=== PATIENT | female | born 1980 | race African-American/Black ===

== ENCOUNTER 2019-07-24 12:42 | Emergency (ER) | payer MEDICAID, SELFPAY ==
[2019-07-24 12:54] VITALS: BP 149/109; PULSE 104; RESP 20; TEMP 38.3; O2SAT 99
--- NOTE | 2019-07-24 13:02 | ED.GENADULT ---
HPI - General Adult General Chief complaint: Upper Respiratory Infection Stated complaint: Asthma Time Seen by Provider: 07/24/19 13:03 Source: patient and RN notes reviewed Mode of arrival: ambulatory Limitations: no limitations History of Present Illness HPI narrative: This is a 39 years old female presents to the office for an evaluation of flu like symptoms for three days. Symptoms include body ache, chill, cold and hot, scratchy throat, and cough. Associated with chest tightness when she coughs. Admits to history of asthma. She does not smoke. She just recently moved here from [facility]. Related Data Allergies Allergy/AdvReac Type Severity Reaction Status Date / Time acetaminophen [From Lortab] AdvReac Unknown Verified 07/10/19 12:55 hydrocodone [From Lortab] AdvReac Unknown Verified 07/10/19 12:55 Review of Systems Review of Systems: Narrative: CONSTITUTIONAL: Reports fever, chills, hot/sweating ENT: Report runny nose/congestion CARDIOVASCULAR: Denies chest pain RESPIRATORY: Reports dyspnea with cough GASTROINTESTINAL: Denies abdominal pain, nausea, diarrhea. Reports vomiting once at the beginning of her symptoms GENITOURINARY: Denies urinary symptoms or discharge SKIN: Denies rash MUSCULOSKELETAL: Denies acute back pain NEUROLOGIC: Denies lightheaded PMFSH Social History Social History (Updated 07/24/19 @ 13:15 by HALI Mcclellan) Smoking status: Never smoker Comments At time of signature, I agree with nursing past medical, surgical, social and family history. There is no relevant family history pertinent to the presenting complaint. Exam Narrative: Exam Narrative: GENERAL: This is a well-nourished, well-developed patient, appears ill, in no apparent distress. EYES: Sclera clear/white. Vision is grossly intact. EARS: External ears normal, auditory canals clear and without drainage, TMs normal without perforation. Hearing grossly intact. NOSE: External nose normal with no obvious nasal discharge, nares without redness, no rhinorrhea. THROAT: Mucous membranes moist, posterior pharynx clear. NECK: Neck supple, non-tender without lymphadenopathy, masses or thyromegaly. CARDIOVASCULAR: Regular rate and rhythm without murmurs, gallops, or rubs. RESPIRATORY: Diminished throughout, however patient did not attempt to take a deep breath. Breath sounds equal bilaterally. No wheezes, rales, or rhonchi. GASTROINTESTINAL: Abdomen soft, non-tender, nondistended. Bowel sounds are active. No hepato-splenomegaly, or palpable masses. No guarding. SKIN: warm, intact with no suspicious lesions or rash, good texture and turgor. NEURO: awake, alert, and oriented to person, place and time. There were no obvious focal neurologic abnormalities. Steady gait [place] Coma Scale Eye Opening: Spontaneous 4 [place] Coma Scale Motor: Obeys Commands 6 [place] Coma Scale Verbal: Oriented 5 Course Reevaluation(s) Reevaluation #1: Patient reports feeling about the same post nebulizer treatment. Patient asking for prednisone, I told the patient is not indicated at this time especially when she tested positive for influenza. She verbalizes understanding. Vital Signs Vital signs: Vital Signs Temperature 101.0 F H 07/24/19 12:54 Pulse Rate 104 H 07/24/19 12:54 Respiratory Rate 07/24/19 12:54 Blood Pressure 149/109 H 07/24/19 12:54 Pulse Oximetry 99 07/24/19 12:54 Temperature 101 F H 07/24/19 13:18 Pulse Rate 104 H 07/24/19 12:54 Respiratory Rate 07/24/19 12:54 Blood Pressure 149/109 H 07/24/19 12:54 Pulse Oximetry 99 07/24/19 12:54 Medical Decision Making MDM Narrative Medical decision making narrative: Discharge instructions reviewed with patient, as well as provided in writing per nursing staff. The instructions also include specific and strict return/GO TO THE ER as well as f/u information. All questions have been answered, and the patient deny any further questions with discharge and
[2019-07-24] MEDS: ALBUTEROL SULFATE NEB 2.5 MG/3 ML INH INHALATION (13:17)
[2019-07-24 13:18] VITALS: PULSE 104; RESP 22; TEMP 38.3; O2SAT 98
[2019-07-24] MEDS: IBUPROFEN 400 MG TABLET PO (13:18)
[2019-07-24] MEDS: IPRATROPIUM BR 0.02% INH SOLN 0.5 MG/2.5 ML VIAL INHALATION (13:18)
[2019-07-24 13:45] VITALS: RESP 22; O2SAT 98
[2019-07-24 13:52] VITALS: TEMP 38.4
--- NOTE | 2019-07-26 11:12 | PC.NURSE ---
stated was seen here 07-24-2019 and dx with flu a. requested work note and vorb per rae ramos np.
== END 2019-07-24 13:54 | disposition home or self-care (01) ==
PROVIDERS: Emergency Provider Nurse Practitioner
DX: J10.1 Influenza due to other identified influenza virus with other respiratory manifestations (principal); R03.0 Elevated blood-pressure reading, without diagnosis of hypertension; J45.909 Unspecified asthma, uncomplicated
CPT/HCPCS: 87804; 94640; 99213; A9270; G0463

== ENCOUNTER 2019-07-31 09:23 | Emergency (ER) | payer MEDICAID, SELFPAY ==
[2019-07-31 09:33] VITALS: BP 141/96; PULSE 72; RESP 16; TEMP 36.9; O2SAT 98
--- NOTE | 2019-07-31 09:56 | ED.GENADULT ---
HPI - General Adult General Chief complaint: Upper Respiratory Infection Stated complaint: Lump/Neck Time Seen by Provider: 07/31/19 09:57 Source: patient and RN notes reviewed Mode of arrival: ambulatory Limitations: no limitations History of Present Illness HPI narrative: 39-year-old female presents with concern for swollen glands. Reports she was treated 1 week ago for influenza with Tamiflu. Reports she took 4 days of the 5-day course of Tamiflu, she stopped taking the Tamiflu when she noticed a lump on the right side of her neck that was painful to swallow. MD complaint: Upper respiratory Related Data Allergies Allergy/AdvReac Type Severity Reaction Status Date / Time acetaminophen [From Lortab] AdvReac Unknown Verified 07/10/19 12:55 hydrocodone [From Lortab] AdvReac Unknown Verified 07/10/19 12:55 Review of Systems Review of Systems: Narrative: CONSTITUTIONAL: Denies malaise, chills, sweats, or fever. EYES: Denies visual changes, redness, or discharge. ENT: Reports rhinorrhea, congestion, sore throat. Denies sinus pain, otalgia. Reports a lump in her right neck CARDIOVASCULAR: Denies chest pain, palpitations, or edema. RESPIRATORY: Reports cough, wheezing. Denies dyspnea. MUSCULOSKELETAL: Denies myalgia. NEUROLOGIC: Denies headache. All systems reviewed & are unremarkable except as noted in HPI and below PMFSH Social History Social History (Updated 07/24/19 @ 13:15 by HALI Mcclellan) Smoking status: Never smoker Comments At time of signature, agree with nursing past medical, surgical, social and family history. There is no relevant family history pertinent to the presenting complaint Exam Narrative: Exam Narrative: GENERAL: Well-appearing, well-nourished, and in no acute distress. HEAD: Normocephalic EYES: PERRLA, conjunctivae clear ENT: Nares clear, turbinates edematous and erythematous, purulent discharge. Mucous membranes moist. TM pearly verma with dull light reflex bilaterally; no tragal tenderness. Oropharynx not erythematous without lesions. Tonsils enlarged and without exudate, no drooling, no hoarseness, no trismus. NECK: Supple. No lymphadenopathy noted CHEST: Scattered wheeze and rhonchi, breath sounds equal. No rales, or stridor. No respiratory distress, speaks in full sentences. HEART: Regular rate and rhythm. SKIN: Warm, dry, no rash. NEURO: Alert and oriented x3. PSYCH: Normal mood and affect Course Course Emergency Course: Patient is aware of diagnosis, understands and agrees to treatment plan. Anticipatory guidance given. Patient agrees to follow-up as directed and is aware of reasons to seek care at the emergency department. Portions of this record may have been created with voice recognition software Vital Signs Vital signs: Vital Signs Temperature 98.4 F 07/31/19 09:33 Pulse Rate 72 07/31/19 09:33 Respiratory Rate 16 07/31/19 09:33 Blood Pressure 141/96 H 07/31/19 09:33 Pulse Oximetry 98 07/31/19 09:33 Temperature 98.4 F 07/31/19 09:33 Pulse Rate 72 07/31/19 09:33 Respiratory Rate 16 07/31/19 09:33 Blood Pressure 141/96 H 07/31/19 09:33 Pulse Oximetry 98 07/31/19 09:33 Reviewed. Patient has been instructed to follow up with her primary care provider within the next week regarding her elevated blood pressure today. Medical Decision Making Vital Signs Vital Signs: Vital Signs Temperature 98.4 F 07/31/19 09:33 Pulse Rate 72 07/31/19 09:33 Respiratory Rate 16 07/31/19 09:33 Blood Pressure 141/96 H 07/31/19 09:33 Pulse Oximetry 98 07/31/19 09:33 Temperature 98.4 F 07/31/19 09:33 Pulse Rate 72 07/31/19 09:33 Respiratory Rate 16 07/31/19 09:33 Blood Pressure 141/96 H 07/31/19 09:33 Pulse Oximetry 98 07/31/19 09:33 Critical Care Time Critical Care Time Critical Care Time: No Discharge Plan Discharge Clinical Impression: Sinobronchitis, History of asthma Patient Disposition: Home, [place]
== END 2019-07-31 10:09 | disposition home or self-care (01) ==
PROVIDERS: Emergency Provider Nurse Practitioner
DX: J32.9 Chronic sinusitis, unspecified (principal); J40 Bronchitis, not specified as acute or chronic; J45.909 Unspecified asthma, uncomplicated
CPT/HCPCS: 99213; G0463

== ENCOUNTER 2019-10-07 22:33 | Emergency (ER) | payer OTHER, SELFPAY ==
--- NOTE | ~2019-10-07 | XR_ITS ---
EXAMINATION: XR chest 2V DATE: 10/07/2019 23:36 INDICATION: Shortness of breath and chest tightness TECHNIQUE: PA and lateral views of the chest are obtained. COMPARISON: None available FINDINGS: There is minimal airspace opacity of the lung bases There is no pleural effusion or pneumot horax. The cardiomediastinal silhouette is normal. There is mild thoracic spondylosis. Surgical clips in the right upper quadrant are likely from prior cholecystectomy. IMPRESSION: 1. Minimal airspace opacity of the lung bases, consistent with atelectasis versus pneumonia. Reviewed, dictated and finalized at location A. IMPRESSION: 1. Minimal airspace opacity of the lung bases, consistent with atelectasis vers us pneumonia.
[2019-10-07 22:36] VITALS: BP 174/98; PULSE 90; RESP 20; TEMP 36.8; O2SAT 100
[2019-10-07 22:48] VITALS: O2SAT 98
--- NOTE | 2019-10-07 23:03 | ED.ASTHMA ---
HPI - Asthma General Chief Complaint: Upper Respiratory Infection Stated Complaint: asthma exacerbation Time Seen by Provider: 10/07/19 22:46 Source: patient Mode of arrival: ambulatory Limitations: no limitations History of Present Illness HPI Narrative: Patient is a 39-year-old female who presents to the emergency department with complaint of shortness of breath and wheezing. Patient has known history of asthma. Patient states she moved something in the garage yesterday that was very critsofer and she began to notice shortness of breath and wheezing afterwards. Patient is out of her inhaler and has only a couple of nebulizer treatments left. She does not currently have a primary care physician as she just moved to the area a few months ago having previously lived in [place]. Patient reports rhinorrhea and congestion which she states is fairly chronic. She denies any fever, cough, or infectious exposure. Patient has not had any travel or known coronavirus exposure. complaint: asthma attack and shortness of breath Context: ran out of meds Related Data Current Asthma Therapy: inhaled bronchodilator Allergies Allergy/AdvReac Type Severity Reaction Status Date / Time acetaminophen [From Lortab] AdvReac Unknown Verified 07/10/19 12:55 hydrocodone [From Lortab] AdvReac Unknown Verified 07/10/19 12:55 Review of Systems Review of Systems: All systems reviewed & are unremarkable except as noted in HPI and below Constitutional: Constitutional: Denies fever(s) ENT: Reports nasal congestion and Reports nasal discharge Respiratory: Respiratory: Denies cough, Reports dyspnea and Reports wheezing PMFSH Past Medical History Medical History (Updated 10/07/19 @ 23:56 by Radha Crooks MD) Asthma Surgical History Surgical History (Updated 10/07/19 @ 23:08 by Radha Crooks MD) History of cholecystectomy Social History Social History Smoking status: Never smoker Gender identity (if verbalized by the patient): Female Exam Const: General: cooperative, no acute distress and alert Nutritional Appearance: obese morbidly obese Orientation/consciousness: patient oriented x3 Limitations: no limitations HENMT: General nose exam: Nasal discharge present clear Mouth: Yes lip normal and Yes moist mucous membranes Resp: Effort & Inspection: normal respiratory effort Auscultation: clear to auscultation bilaterally Cardio: Rate: regular rate Rhythm: regular rhythm Skin: General skin exam: normal color Neuro: General: patient oriented x3 Cognition (Neuro): normal cognition Speech: normal speech Extrem: General: normal to inspection, full ROM and no clubbing, cyanosis or edema Psych: Mental Status: mental status grossly normal Affect: normal affect Attitude: cooperative Course Course Emergency Course: Patient presents with asthma symptoms and out of her asthma medications. No wheezing, tachycardia, tachypnea, or hypoxia noted on examination. Patient was placed on chemical educator on arrival. Staff noted unusual appearance on chemical educator which on my review looked suspicious for possible intermittent bundle branch block, however when staff attempted to perform twelve-lead EKG, patient was in normal sinus rhythm with narrow QRS and did not have any recurrence and were not able to capture this on a twelve-lead for further evaluation. Patient wanting to go home to her who is currently battling cancer. Patient without cardiac symptoms and appropriate for discharge with asthma medications. Chest x-ray shows no acute pathology. Patient does not have any known exposure to coronavirus and is afebrile with no new symptoms aside from her usual asthma. Vital Signs Vital signs: Vital Signs Temperature 98.2 F 10/07/19 22:36 Pulse Rate 90 10/07/19 22:36 Respiratory Rate 20 10/07/19 22:36 Blood Pressure 174/98 H 10/07/19 22:36 Pulse Oxim
[2019-10-08 00:05] VITALS: BP 151/88; PULSE 74; RESP 14; O2SAT 100
== END 2019-10-08 00:05 | disposition home or self-care (01) ==
PROVIDERS: Emergency Provider Emergency Medicine
DX: J45.20 Mild intermittent asthma, uncomplicated (principal)
CPT/HCPCS: 71046; 99283

== ENCOUNTER 2020-03-13 13:58 | Emergency (ER) | payer OTHER, SELFPAY ==
--- NOTE | ~2020-03-13 | XR_ITS ---
XR knee LT min 4V DATE: 03/13/2020 15:27 INDICATION: Left knee pain for one day, the heart to discharge. No injury. TECHNIQUE: 4 views COMPARISON: None FINDINGS: There is suprapatellar joint effusion. There is prominent tricompartment osteoarthritis, most prominent at medial compartment. No fracture or dislocation, periosteal reaction or bone destruction. IMPRESSION: Knee joint effusion Tricompartment osteoarthritis, most prominent at medial compartment Reviewed, dictated and finalized at location B.
[2020-03-13 14:20] VITALS: BP 149/108; PULSE 90; RESP 18; TEMP 35.8; O2SAT 100
--- NOTE | 2020-03-13 15:19 | PC.NURSE ---
Patient in X-ray.
--- NOTE | 2020-03-13 15:21 | ED.EXTPRO ---
HPI - Extremity Problem General Chief complaint: Extremity Problem,Nontraumatic Stated complaint: L KNEE PAIN X1D Time Seen by Provider: 03/13/20 14:43 Source: patient Mode of arrival: ambulatory Limitations: no limitations History of Present Illness HPI Narrative: This patient is a 39 year old female who presents for evaluation of left knee pain. Patient states she noticed anterior knee pain when she woke up yesterday morning. Her pain has continued and it is worse with bearing weight. She reports it is swollen as well. She denies any known injury, and she took naproxen for her pain yesterday. She denies fever or chillls. She has been using a brace on her knee to help with pain. Related Data Allergies Allergy/AdvReac Type Severity Reaction Status Date / Time acetaminophen [From Lortab] AdvReac Unknown Verified 07/10/19 12:55 hydrocodone [From Lortab] AdvReac Unknown Verified 07/10/19 12:55 Review of Systems Review of Systems: All systems reviewed & are unremarkable except as noted in HPI and below PMFSH Past Medical History Medical History (Updated 03/13/20 @ 16:11 by Dahiana Flores MD) Asthma Surgical History Surgical History (Updated 10/07/19 @ 23:08 by Radha Crooks MD) History of cholecystectomy Social History Social History Smoking status: Never smoker Gender identity (if verbalized by the patient): Female Exam Const: General: no acute distress and alert Nutritional Appearance: obese Orientation/consciousness: patient oriented x3 Resp: Effort & Inspection: normal respiratory effort Skin: General skin exam: normal color Rashes: no rashes Neuro: General: patient oriented x3, moves all extremities and CN's II-XI intact bilaterally Extrem: General: no pedal edema Other: no significant knee swelling, no increased warmth or erythema Psych: Mental Status: mental status grossly normal Affect: normal affect Course Reevaluation(s) Reevaluation #1: I have discussed with patient management and discharge plan of left knee osteoarthritis with effusion. She was given an CHARO bandage Date: 03/13/20 Time: 16:08 Vital Signs Vital signs: Vital Signs Temperature 96.4 F L 03/13/20 14:20 Pulse Rate 90 03/13/20 14:20 Respiratory Rate 18 03/13/20 14:20 Blood Pressure 149/108 H 03/13/20 14:20 Pulse Oximetry 100 03/13/20 14:20 Temperature 96.4 F L 03/13/20 14:20 Pulse Rate 90 03/13/20 14:20 Respiratory Rate 18 03/13/20 14:20 Blood Pressure 149/108 H 03/13/20 14:20 Pulse Oximetry 100 03/13/20 14:20 MDM - Extremity (Nontraumatic) Imaging Data Radiologist's impression: ITS Impressions Knee X-Ray 03/13/20 15:30 IMPRESSION: Knee joint effusion Tricompartment osteoarthritis, most prominent at medial compartment Discharge Plan Discharge Clinical Impression: Effusion of knee joint, left, Osteoarthritis of left knee Patient Disposition: Home, Self-Care Condition: Stable Instructions: Antibiotic Form, Knee Bursitis (ED), Osteoarthritis (ED), Swollen Knee Joint (ED) Additional Instructions: Please apply ice and wear charo bandage to provide support. Take NSAIDS such as ibuprofen or naproxen. Prescriptions: New naproxen 500 mg tablet 500 mg PO BID PRN (Reason: pain) Qty: 14 RF: 0 No Action albuterol sulfate 1.25 mg/3 mL solution for nebulization 1.25 mg INHALATION Q4H Qty: 90 RF: 0 prednisone 20 mg tablet 40 mg PO DAILY 5 Days Qty: 10 RF: 0 doxycycline monohydrate 100 mg tablet 100 mg PO BID 7 Days Qty: 14 RF: 0 albuterol sulfate 90 mcg/actuation HFA aerosol inhaler 2 - 4 puff INHALATION Q4H PRN (Reason: shortness of breath or wheezing) Qty: 18 RF: 0 albuterol sulfate 2.5 mg /3 mL (0.083 %) solution for nebulization 5 mg INHALATION Q4H PRN (Reason: shortness of breath or wheezing) Qty: 180 RF: 0 Follow-up/Refe
[2020-03-13] MEDS: KETOROLAC (*BKC) 60 MG/2 ML VIAL IM (15:29)
== END 2020-03-13 16:29 | disposition home or self-care (01) ==
PROVIDERS: Emergency Provider General Practice
DX: M17.12 Unilateral primary osteoarthritis, left knee (principal); M25.462 Effusion, left knee
CPT/HCPCS: 73564; 96372; 99283; J1885

== ENCOUNTER 2020-09-13 09:00 | Outpatient (CLI) | payer OTHER, SELFPAY ==
--- NOTE | 2020-09-13 09:00 | ECG_ITS ---
Measurements Intervals [place] Rate: 95 P: 62 CO: 141 QRS: 30 QRSD: 94 T: 34 QT: 291 QTc: 367 Interpretive Statements SINUS RHYTHM DELAYED PRECORDIAL R/S TRANSITION CONSIDER INFERIOR INFARCT, AGE INDETERMINATE BORDERLINE T WAVE ABNORMALITY- ANTEROLAT/HIGH LAT LEADS ABNORMAL ECG Electronically Signed On 09-13-2020 9:28:16 CDT by Nahum Vera D.O.
[2020-09-13 10:03] LABS: Basophils Absolute Auto 0.1 K/mm3 (0.0-0.1); Basophils Percent Auto 1.1 % (0.2-1.2); Eosinophils Absolute Auto 1.4 K/mm3 (0-0.3); Eosinophils Percent Auto 15.5 % (0-4.4); Hematocrit 40.7 % (37.0-47.0); Immature Granulocyte Absolute 0.02 K/mm3 (0.00-0.031); Immature Granulocyte Percent A 0.2 % (0-0.5); Lymphocytes Absolute Auto 3.68 K/mm3 (0.9-3.2); Lymphocytes Percent Auto 40.2 % (18.3-44.2); Mean Corpuscular HGB Conc 31.9 g/dl (32-36); Mean Corpuscular Hemoglobin 28.3 pg (26-34); Mean Corpuscular Volume 88.7 fl (80-100); Mean Platelet Volume 9.6 fl (7.4-10.4); Monocytes Absolute Auto 0.7 K/mm3 (0.1-0.6); Monocytes Percent Auto 7.5 % (2.6-8.5); Neutrophils Absolute Auto 3.2 K/mm3 (1.3-6.7); Neutrophils Percent Auto 35.5 % (45.5-73.1); Platelet Count Result 357 k/mm3 (150-375); Red Blood Count 4.59 M/mm3 (4.2-5.4); Red Cell Distribution Width 14.6 % (11.5-14.5); White Blood Count 9.2 K/mm3 (4.5-10.0)
[2020-09-13 10:11] LABS: Alanine Aminotransferase 18 U/L (4-35); Albumin Level 4.3 g/dL (3.5-5.1); Alkaline Phosphatase 75 U/L (38-126); Anion Gap 9 mmol/L (8-16); Aspartate Amino Transferase 34 U/L (14-36); Bilirubin,Total < 0.1 mg/dL (0.2-1.3); Blood Urea Nitrogen 14 mg/dL (7-17); Calcium 8.9 mg/dL (8.4-10.2); Carbon Dioxide 26 mmol/L (22-30); Chloride 106 mmol/L (98-107); Estimated Glomerular Filt Rate > 60; Glucose 122 mg/dL (65-105); Potassium 3.8 mmol/L (3.4-5.0); Sodium 141 mmol/L (137-145)
== END 2020-09-13 09:01 | disposition home or self-care (01) ==
PROVIDERS: Visit Provider Obstetrics & Gynecology
DX: R19.00 Intra-abdominal and pelvic swelling, mass and lump, unspecified site (principal); I10 Essential (primary) hypertension; R94.31 Abnormal electrocardiogram [ECG] [EKG]
CPT/HCPCS: 36415; 80053; 85025; 86850; 86900; 86901; 93005

== ENCOUNTER → 2020-09-20 00:47 | Outpatient (CLI) | payer OTHER, SELFPAY ==
[2020-09-20 19:49] LABS: SARS-CoV-2 RNA PCR Negative
== END ==
PROVIDERS: Visit Provider Obstetrics & Gynecology
DX: Z01.812 Encounter for preprocedural laboratory examination (principal); Z20.822 Contact with and (suspected) exposure to COVID-19
CPT/HCPCS: C9803; U0003; U0005

== ENCOUNTER 2020-09-23 11:07 | Inpatient (IN) | payer OTHER, SELFPAY ==
[2020-09-10 09:28] VITALS: BMI 54.5
--- NOTE | 2020-09-10 09:55 | PC.NURSE ---
Spoke with Dr. Ochoa's office re: pt pre-op testing. Orders received for T&S, CBC, and CMP along with testing required per dept. of anesthesia.
[2020-09-23] VITALS (14 sets, daily range): BP systolic 122–156; BP diastolic 61–96; PULSE 71–97; RESP 12–20; TEMP 36.1–36.9; O2SAT 94–100
--- NOTE | ~2020-09-23 | XR_ITS ---
EXAMINATION: XR abdomen obstructive series DATE: 09/26/2020 09:55 INDICATION: Abdominal pain and nausea TECHNIQUE: Upright and supine views of the abdomen were obtained. COMPARISON: 09/25/2020 FINDINGS: There are multiple persistently dilated loops of small bowel however degree of distention h as improved. No free intraperitoneal gas is identified. There is atelectasis of the lung bases. Surgi yvrose clips in the right upper quadrant are likely from prior cholecystectomy. Surgical katty are not ed in the lower abdomen and pelvis. IMPRESSION: 1. Persistently dilated small bowel with improvement, likely adynamic ileus. Reviewed, dictated and finalized at location B.
--- NOTE | ~2020-09-23 | XR_ITS ---
EXAMINATION: XR abdomen obstructive series DATE: 09/25/2020 11:36 INDICATION: Nausea and vomiting. Abdominal pain. Recent hysterectomy. TECHNIQUE: Upright and supine views of the abdomen on 3 radiographs were obtained. COMPARISON: None. FINDINGS: There are multiple dilated loops of small bowel. The colon is normal in caliber. Surgical c lips in the right upper quadrant are likely from cholecystectomy. No free intraperitoneal gas. IMPRESSION: 1. Dilated small bowel, likely adynamic ileus. Reviewed, dictated and finalized at location A.
--- NOTE | 2020-09-23 11:00 | WPDANESEPPF ---
Anes - Initial Pre Proc Eval Procedure: Operation Date: 09/23/20 12:00 Proposed Procedures p Exploratory Laparotomy - Paresh Ochoa MD Date/Time: 09/23/20 11:00 Surgeon: Paresh Ochoa MD Pre Op Diagnosis: pelvic mass Patient Data Age: 40 Gender: F Height: 5 ft 4 in Weight: 143.6 kg Allergies Allergy/AdvReac Type Severity Reaction Status Date / Time hydrocodone [From Lortab] AdvReac Intermediate Itching Verified 09/23/20 10:44 Home Medications Medication Instructions Recorded Confirmed Type albuterol sulfate 1.25 mg INHALATION Q4H PRN 09/10/20 09/23/20 History amlodipine 2.5 mg PO DAILY 09/10/20 09/23/20 History budesonide-formoterol [Symbicort] 2 puff INHALATION Q12H 09/10/20 09/23/20 History li-vztciqm-voj-iron fm-FA-vitK 1 tablet PO DAILY 09/10/20 09/23/20 History [One-A-Day Women's Complete] Patient hx anesthesia problems: none Family hx anesthesia problems: none PMFSH Past Medical History Medical History Asthma Hypertension Surgical History Surgical History History of cholecystectomy Social History Social History Smoking status: Never smoker Alcohol intake: current Drinks per week: 3 Substance use: never Substance use type: does not use Living arrangements: with family Gender identity (if verbalized by the patient): Female Spiritual care concerns: No Anes - Eval Final PreProcedure Day of Procedure 09/23/20 11:00 Patient weight: super morbidly obese Heart: regular rate and rhythm Airway: Mallampati scale class II Neurological: alert and oriented Last oral intake: >/= 8 hours ASA classification: III Emergent: no Anesthetic plan: proceed Anesthesia type and monitoring: general ETT and standard monitoring Informed Consent: The patient's anesthetic plan and its attendant risks and benefits were discussed with the patient/family/POA. Questions were solicited and answers provided to the satisfaction of the patient/family/POA.
[2020-09-23] MEDS: ACETAMINOPHEN 500 MG TABLET 1000 MG PO (11:06)
[2020-09-23] MEDS: LACTATED RINGERS 1,000 ML 30 ML IV CONT ×3 (11:17→15:10)
[2020-09-23] MEDS: KETOROLAC 15 MG/ML VIAL (*BKC) IV PUSH (11:19)
--- NOTE | 2020-09-23 12:29 | WPDHPUPDATE1 ---
History and Physical Update Update Date/Time: 09/23/20 12:29 History and Physical has been reviewed, including an updated exam of the patient. There are NO changes in the patient's condition. Risks, benefits, and alternatives have been discussed and questions answered. Patient agrees to proceed with procedure.
--- NOTE | 2020-09-23 12:36 | PM.IMHP ---
H&P: HPI History of Present Illness Date/Time: 09/23/20 12:36This patient is a 40-year-old female with pelvic pressure and pain. Her evaluation revealed a 20 cm pelvic mass. 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 We have agreed to perform exploratory laparotomy. The patient understands the procedure. It was described to her in detail. Risk was also described in detail. She understands the surgical injuries occasionally occur. She understands that injuries may occur that result in hospitalization, more surgery, severe illness. She understands risk of hemorrhage infection. She denies any chest pain or shortness of breath. She denies any nausea, vomiting, fever, chills. She denies any headaches or blurry vision. Chief Complaint: Pelvic pain Review of Systems Constitutional: Constitutional: Reports no additional constitutional complaints, Denies fatigue, Denies headache(s), Denies lethargy and Denies weakness Eyes: Eyes: Reports no additional eye complaints, Denies blurry vision and Denies photophobia ENT: Reports as per HPI, Denies headache(s) and Denies neck pain Cardiovascular: Cardiovascular: Denies chest pain, Denies diaphoresis, Denies leg edema, Denies palpitations and Denies dyspnea Respiratory: Respiratory: Denies hemoptysis, Denies dyspnea and Denies wheezing Gastrointestinal: Gastrointestinal: Denies abdominal pain, Denies melena, Denies bloating, Denies hematochezia, Denies nausea and Denies vomiting Genitourinary: Genitourinary: Reports no additional female genitourinary complaints Musculoskeletal: Musculoskeletal: Denies joint swelling, Denies neck pain, Denies numbness and Denies stiffness Neurologic: Denies Abnormal speech present, Denies confusion, Denies headache(s), Denies numbness and Denies weakness Psychiatric: Psychiatric: Denies anxiety, Denies confusion, Denies depression, Denies homicidal ideation and Denies suicidal ideation Endocrine: Endocrine: Denies fatigue and Denies palpitations Allergic/Immunologic: Allergic/Immunologic: Denies wheezing PMFSH Past Medical History Medical History Asthma Hypertension Surgical History Surgical History History of cholecystectomy Social History Social History Smoking status: Never smoker Alcohol intake: current Drinks per week: 3 Substance use: never Substance use type: does not use Living arrangements: with family Gender identity (if verbalized by the patient): Female Spiritual care concerns: No Meds Home Medications and Allergies Home Medications Medication Instructions Recorded Confirmed Type albuterol sulfate 1.25 mg INHALATION Q4H PRN 09/10/20 09/23/20 History amlodipine 2.5 mg PO DAILY 09/10/20 09/23/20 History budesonide-formoterol [Symbicort] 2 puff INHALATION Q12H 09/10/20 09/23/20 History sv-jxvreod-buy-iron fm-FA-vitK 1 tablet PO DAILY 09/10/20 09/23/20 History [One-A-Day Women[facility] Complete] Allergies Allergy/AdvReac Type Severity Reaction Status Date / Time hydrocodone [From Lortab] AdvReac Intermediate Itching Verified 09/23/20 10:44 Vital Signs Vital Signs - 24 hr 09/23/20 10:37 Temperature 97.2 F L Pulse Rate 86 Respiratory Rate 16 Blood Pressure 156/94 H Pulse Oximetry 99 Exam Const: General: healthy appearing, comfortable and no acute distress; No confusion Orientation/consciousness: No confusion Eyes: Direct Ophthalmoscopy: No photophobia Resp: Auscultation: clear to auscultation bilaterally, no rales, no rhonchi and no wheezes Cardio: Rate: regular rate Heart sounds: no click, no murmurs and no rubs GI: Inspection: non-distended GI Palp: No abdominal tenderness Auscultation: normal bowel sounds : General: Yes bimanual renal exam abnormal (Pelvic mass) External Female Exam: normal external appearance Speculum E
[2020-09-23] MEDS: ceFAZolin SODIUM 1 GM VIAL 3 GM IV PUSH (13:36)
[2020-09-23] MEDS: fentaNYL CITRATE INJ (*CRX) 100 MCG/2 ML VIAL 25 MCG IV PUSH ×4 (14:32→14:49)
--- NOTE | 2020-09-23 14:54 | P.OP_ITS ---
Procedure Note - Detailed Date of procedure: 09/23/20 Pre-op diagnosis: pelvic mass Post-op diagnosis: same (Bilateral ovarian masses) Procedure performed: Exploratory laparotomy with resection of left pelvic mass and right ovarian cystectomy. Description of procedure: The patient was taken the operating room. She was prepped and draped in the dorsal spine position after induction of general anesthesia. A vertical incision was made from the umbilicus down to the pubic bone. It was carried down the level of fascia. The fascia incised in the midline. The fascial incision extended superior and inferiorly with good visualization the underlying tissue. Rectus muscles were . The intra- abdominal cavity was entered bluntly. The large pelvic mass was brought through the incision. The infundibulopelvic ligament was clamped, transected, and ligated with 0 Vicryl. Fallopian tube was clamped, transected, and ligated with 0 Vicryl. The bowel was packed in the upper abdomen the bowel for retractor was inserted. The right ovary was addressed. A right ovarian cystectomy was performed manually. A plane of dissection was easily found between the ovary and the dermoid cyst. The cut surface was cauterized thoroughly. It was hemostatic and returned to the pelvis. The abdomen was unpacked. The bowel for retractor was removed. The fascia was closed with a 1. Looped PDS and a running fashion. The subcutaneous tissue was closed with 3 O Vicryl some. These were interrupted sutures placed at 2 different levels. The skin was closed katty. The patient tolerated the procedure well. She has taken cover was stable condition. Sponge lap and needle counts were correct x2. Anesthesia: GETA Surgeon: Paresh Ochoa MD Estimated blood loss (mL): 150 Drains: No Packing: No Pathology: yes Complications: No immediate complications Condition: stable Disposition: PACU Findings: 20 cm left ovarian mass. 3 cm right ovarian mass. Normal appearing fallopian tube on the right. Stretched and scarred left fallopian tube stretched across the 20 cm mass. Normal-appearing uterus.
[2020-09-23] MEDS: HYDROmorphone HCL INJ (*CRX) 1 MG/ML SYR 0.5 MG IV PUSH ×6 (14:57→15:56)
--- NOTE | 2020-09-23 15:07 | SUR.PHASEI ---
02 removed at 1456.
--- NOTE | 2020-09-23 16:43 | SUR.PHASEI ---
1620; CALLED DR LALA, PT HAS NO PATTERSON, NO VOID TODAY. ORDER TO PLACE PATTERSON. 1630; 16FR PATTERSON PLACED WITHOUT DIFFICULTY 1640; PT AWAKE, RESTING QUIETLY. STILL DOESNT USE PAIN SCALE. STATES IT HURTS . PT RELAXED. EATING ICE CHIPS. MEETS DISCHARGE CRITERIA
[2020-09-23] MEDS: DEXTROSE 5%/0.45% SOD CHL 1,000 ML 125 ML (17:40)
[2020-09-23] MEDS: KETOROLAC 30 MG/ML VIAL (*BKC) (17:41)
--- NOTE | 2020-09-23 18:49 | PC.NURSE ---
This patient, Aparna Sagastume, was received from PACU on 09/23/20 at 1653 per bed. Patient oriented to unit policies and routines
[2020-09-23] MEDS: oxyCODONE/ACETAMINOPHEN (*CRX) 5-325 MG TABLET 1 TABLET PO ×2 (18:55→22:50)
[2020-09-23] MEDS: SIMETHICONE 80 MG TAB.CHEW PO ×2 (18:55→22:49)
[2020-09-23] MEDS: MORPHINE SULFATE (*CRX) 4 MG/ML INJ IV PUSH (20:22)
[2020-09-23] MEDS: KETOROLAC 30 MG/ML VIAL (*BKC) IV PUSH (23:42)
[2020-09-24] MEDS: MORPHINE SULFATE (*CRX) 4 MG/ML INJ IV PUSH ×5 (00:46→21:02)
[2020-09-24 03:00] VITALS: BP 135/69; PULSE 88; RESP 20; TEMP 37; O2SAT 97
[2020-09-24] MEDS: oxyCODONE/ACETAMINOPHEN (*CRX) 5-325 MG TABLET 1 TABLET PO ×2 (03:04→06:57)
[2020-09-24] MEDS: SIMETHICONE 80 MG TAB.CHEW PO ×3 (03:04→22:01)
[2020-09-24 03:35] VITALS: O2SAT 97
[2020-09-24] MEDS: KETOROLAC 30 MG/ML VIAL (*BKC) IV PUSH ×3 (06:58→19:26)
--- NOTE | 2020-09-24 07:37 | WPDANESPN ---
Anes - Prog Note Post-Op Date/Time: 09/24/20 07:37 Cardiovascular status: normal Respiratory status: normal Airway patency: baseline Mental status: baseline Post-Op hydration status: normal Vital Signs: Last Vital Signs Temp 37.0 C 09/24/20 03:00 Pulse 88 09/24/20 03:00 Resp 20 09/24/20 03:00 BP 135/69 09/24/20 03:00 Pulse Ox 97 09/24/20 03:35 Pain Score (VAS): 5/10 I/O: Intake & Output 09/23/20 09/23/20 09/24/20 15:59 23:59 07:59 Intake Total 042 785 8946 Output Total 200 2600 Balance 952 232 1186 Post-procedural complaints: none Patient Feedback: Patient satisfied with anesthetic care.
--- NOTE | 2020-09-24 08:22 | PM.GYNPNOP ---
ASSOCIATE PROFESSOR OF ENGLISH - A/P Assessment and plan (1) Post-operative state: Code(s): Z98.890 - Other specified postprocedural states Status: Acute Assessment and Plan: post op day #1 laparotomy - normal recovery, pain reasonably well controlled. +flatus, Postoperative Procedures: Procedures Operation Date: 09/23/20 13:00 Actual Procedures Side Surgeon p Exploratory Laparotomy with right ovarin cystectomy and left ovarian mass Not Applicable Paresh Ochoa MD Postoperative day: 1 Postoperative status: doing well Postoperative plan: see orders Time Spent With Patient Time: Total time spent is greater than 50% in coordination of care (as documented) at patient's floor/unit and/or counseling patient: Time with patient: less than 15 minutes ASSOCIATE PROFESSOR OF ENGLISH- PN:Subj Post-Op Subjective Date/time seen: 09/24/20 08:22 Subjective: patient reports feeling better, patient has no complaints and pain is well controlled Exam Const: General: healthy appearing, comfortable and no acute distress Resp: Auscultation: clear to auscultation bilaterally, no rales, no rhonchi and no wheezes Cardio: Rate: regular rate Heart sounds: no click, no murmurs and no rubs GI: Inspection: non-distended Auscultation: normal bowel sounds Extrem: General: normal to inspection, no pedal edema and no calf tenderness ASSOCIATE PROFESSOR OF ENGLISH - PN: Obj Data Vital Signs Vital Signs: Vital Signs - 24 hr 09/23/20 10:37 09/23/20 14:27 09/23/20 14:40 Temperature 97.2 F L 97.0 F L Pulse Rate 86 84 78 Respiratory Rate 16 20 16 Blood Pressure 156/94 H 132/87 122/61 Pulse Oximetry 99 97 100 09/23/20 14:55 09/23/20 15:15 09/23/20 15:30 Temperature Pulse Rate 71 86 83 Respiratory Rate 12 16 18 Blood Pressure 141/96 H 135/78 144/67 H Pulse Oximetry 98 94 99 09/23/20 15:45 09/23/20 16:00 09/23/20 16:15 Temperature Pulse Rate 88 80 88 Respiratory Rate 14 14 16 Blood Pressure 147/73 H 140/67 133/78 Pulse Oximetry 99 98 99 09/23/20 16:53 09/23/20 18:45 09/23/20 18:50 Temperature 98.5 F 98.4 F Pulse Rate 89 88 Respiratory Rate 16 20 20 Blood Pressure 124/74 142/93 H Pulse Oximetry 100 100 100 09/23/20 19:15 09/23/20 23:40 09/24/20 03:00 Temperature 98.4 F 98.6 F Pulse Rate 97 88 Respiratory Rate 20 20 Blood Pressure 136/84 135/69 Pulse Oximetry 98 99 97 09/24/20 03:35 Temperature Pulse Rate Respiratory Rate Blood Pressure Pulse Oximetry 97 Intake/Output Intake/Output: Intake & Output 09/21/20 09/22/20 09/23/20 09/24/20 23:59 23:59 23:59 23:59 Intake Total 600 3720 Output Total 200 2600 Balance 400 1120 Meds/Results Medications: Active Medications Generic Name Dose Route Start Last Admin Trade Name Freq PRN Reason Stop Dose Admin Albuterol 1.25 mg 09/23/20 17:57 Albuterol Sulfate Neb 2.5 Mg/3 Ml Inh INHALATION Q4H PRN Bronchospasm Amlodipine Besylate 2.5 mg 09/24/20 09:00 Amlodipine Besylate 2.5 Mg Tablet PO DAILY [facility] Budesonide/Formoterol Fumarate 2 puff 09/24/20 08:00 Budesonide/Formoterol 80/4.5 Mcg 6.9 Gm Inhaler (*Sp) INHALATION Q12HRT [facility] Ketorolac Tromethamine 30 mg 09/23/20 16:45 09/24/20 06:58 Ketorolac 30 Mg/Ml Vial (*Bkc) IV PUSH 09/28/20 16:46 30 mg Q6H PRN Administration Pain Rated 4-6 Morphine Sulfate 4 mg 09/23/20 16:45 09/24/20 05:45 Morphine Sulfate (*Crx) 4 Mg/Ml Inj IV PUSH 4 mg Q4H PRN Administration Pain Rated 7-10 Multivitamins Therapeutic 1 tablet 09/24/20 09:00 Multivitamins Therapeutic Tab (*Bkc) PO DAILY [facility] Naloxone HCl 0.1 mg 09/23/20 16:45 Naloxone Hcl 0.4 Mg/Ml Vial IV PUSH Q2M PRN Respiratory rate less than 10 Ondansetron HCl 4 mg 09/23/20 16:45 Ondansetron Inj 4 Mg/2 Ml Vial IV PUSH Q6H PRN Nausea Oxycodone/Acetaminophen 2 tablet 09/24/20 08:15 Oxycodone/Acetaminophen (*Crx) 5-325 Mg Tablet PO Q4H PRN Pain Rated 7-10 Simethicone 80 mg 0
[2020-09-24] MEDS: oxyCODONE/ACETAMINOPHEN (*CRX) 5-325 MG TABLET 2 TABLET PO ×4 (08:56→22:01)
[2020-09-24] MEDS: amLODIPine BESYLATE 2.5 MG TABLET PO (08:58)
[2020-09-24] MEDS: MULTIVITAMINS THERAPEUTIC TAB (*BKC) 1 TABLET PO (08:58)
[2020-09-24] MEDS: BUDESONIDE/FORMOTEROL 80/4.5 MCG 6.9 GM INHALER (*SP) 2 PUFF INHALATION ×2 (08:59→19:27)
[2020-09-24 09:05] VITALS: BP 141/79; PULSE 79; RESP 16; TEMP 36.9; O2SAT 100
[2020-09-24 11:45] VITALS: BP 145/82; PULSE 72; RESP 18; TEMP 36.4; O2SAT 99
[2020-09-24] MEDS: diphenhydrAMINE HCl CAP 25 MG CAPSULE PO (19:26)
[2020-09-24 19:30] VITALS: BP 138/93; PULSE 71; RESP 18; TEMP 36.7; O2SAT 93
[2020-09-25] MEDS: diphenhydrAMINE HCl CAP 25 MG CAPSULE PO (01:36)
[2020-09-25] MEDS: oxyCODONE/ACETAMINOPHEN (*CRX) 5-325 MG TABLET 2 TABLET PO (02:04)
[2020-09-25 08:00] VITALS: BP 158/88; PULSE 105; RESP 16; TEMP 36.6; O2SAT 96
[2020-09-25 09:00] VITALS: BP 141/85; PULSE 98; RESP 20; TEMP 36.2; O2SAT 100
--- NOTE | 2020-09-25 09:03 | ECG_ITS ---
Measurements Intervals [place] Rate: 96 P: 59 AR: 151 QRS: 43 QRSD: 91 T: 19 QT: 340 QTc: 430 Interpretive Statements SINUS RHYTHM BORDERLINE ST-T WAVE ABNORMALITY- INFERIOR LEADS BORDERLINE ECG Electronically Signed On 09-25-2020 9:22:50 CDT by Nahum Vera D.O.
--- NOTE | 2020-09-25 09:05 | PM.GYNPNOP ---
WASTEWATER MANAGER - A/P Assessment and plan (1) Chest pain: Code(s): R07.9 - Chest pain, unspecified Status: Acute Assessment and Plan: stat 12 lead EKG, troponin, Protonix, changing her pain medication to tramadol. Apryl, hospitalist consult to rule out cardiac event. (2) Post-operative state: Code(s): Z98.890 - Other specified postprocedural states Status: Acute (3) Pelvic mass: Code(s): R19.00 - Intra-abdominal and pelvic swelling, mass and lump, unspecified site Status: Acute (4) Pelvic pain: Code(s): R10.2 - Pelvic and perineal pain Status: Acute Postoperative Procedures: Procedures Operation Date: 09/23/20 13:00 Actual Procedures Side Surgeon p Exploratory Laparotomy with right ovarin cystectomy and left ovarian mass Not Applicable Paresh Ochoa MD Postoperative day: 1 Postoperative status: doing well Postoperative plan: see orders Time Spent With Patient Time: Total time spent is greater than 50% in coordination of care (as documented) at patient's floor/unit and/or counseling patient: Time with patient: 15 - 25 minutes WASTEWATER MANAGER- PN:Subj Post-Op Subjective Date/time seen: 09/25/20 09:05 patient reports some substernal burning in the inferior aspect of her sternum. She is vomiting. She has become nauseated she believes secondary to her pain medication. She has some diffuse pruritus. Subjective: patient reports nausea and pain not well controlled Exam Const: General: healthy appearing, comfortable and no acute distress Resp: Auscultation: clear to auscultation bilaterally, no rales, no rhonchi and no wheezes Cardio: Rate: regular rate Heart sounds: no click, no murmurs and no rubs GI: Inspection: non-distended Auscultation: normal bowel sounds Extrem: General: normal to inspection, no pedal edema and no calf tenderness WASTEWATER MANAGER - PN: Obj Data Vital Signs Vital Signs: Vital Signs - 24 hr 09/24/20 11:45 09/24/20 19:30 Temperature 97.6 F 98.0 F Pulse Rate 72 71 Respiratory Rate 18 18 Blood Pressure 145/82 H 138/93 H Pulse Oximetry 99 93 Intake/Output Intake/Output: Intake & Output 09/22/20 09/23/20 09/24/2021 23:59 23:59 23:59 23:59 Intake Total 600 4520 Output Total 200 3950 800 Balance 400 570 -800 Meds/Results Medications: Active Medications Generic Name Dose Route Start Last Admin Trade Name Freq PRN Reason Stop Dose Admin Albuterol 1.25 mg 09/23/20 17:57 Albuterol Sulfate Neb 2.5 Mg/3 Ml Inh INHALATION Q4H PRN Bronchospasm Amlodipine Besylate 2.5 mg 09/24/20 09:00 09/24/20 08:58 Amlodipine Besylate 2.5 Mg Tablet PO 2.5 mg DAILY LEVAR Administration Budesonide/Formoterol Fumarate 2 puff 09/24/20 08:00 09/24/20 19:27 Budesonide/Formoterol 80/4.5 Mcg 6.9 Gm Inhaler (*Sp) INHALATION 2 puff Q12HRT LEVAR Administration Diphenhydramine HCl 25 mg 09/24/20 19:10 09/25/20 01:36 Diphenhydramine Hcl Cap 25 Mg Capsule PO 25 mg Q6H PRN Administration Itching Ketorolac Tromethamine 30 mg 09/23/20 16:45 09/24/20 19:26 Ketorolac 30 Mg/Ml Vial (*Bkc) IV PUSH 09/28/20 16:46 30 mg Q6H PRN Administration Pain Rated 4-6 Morphine Sulfate 4 mg 09/23/20 16:45 09/24/20 21:02 Morphine Sulfate (*Crx) 4 Mg/Ml Inj IV PUSH 4 mg Q4H PRN Administration Pain Rated 7-10 Multivitamins Therapeutic 1 tablet 09/24/20 09:00 09/24/20 08:58 Multivitamins Therapeutic Tab (*Bkc) PO 1 tablet DAILY LEVAR Administration Naloxone HCl 0.1 mg 09/23/20 16:45 Naloxone Hcl 0.4 Mg/Ml Vial IV PUSH Q2M PRN Respiratory rate less than 10 Ondansetron HCl 4 mg 09/23/20 16:45 Ondansetron Inj 4 Mg/2 Ml Vial IV PUSH Q6H PRN Nausea Ondansetron HCl 4 mg 09/25/20 08:59 Ondansetron Hcl Odt 4 Mg Tablet PO Q6H PRN Nausea And Vomiting Oxycodone/Acetaminophen 2 tablet 09/24/20 11:00 04/14/21 02:04 Oxycodone/Acetaminophen (*Crx) 5-325 Mg Table
--- NOTE | 2020-09-25 09:15 | PC.NURSE ---
EKG done by cardiology
[2020-09-25] MEDS: PANTOPRAZOLE 40 MG TABLET PO (09:44)
[2020-09-25] MEDS: ONDANSETRON HCL ODT 4 MG TABLET PO (09:44)
[2020-09-25] MEDS: SIMETHICONE 80 MG TAB.CHEW PO (09:46)
[2020-09-25 09:47] LABS: Basophils Absolute Auto 0.1 K/mm3 (0.0-0.1); Basophils Percent Auto 0.5 % (0.2-1.2); Eosinophils Absolute Auto 0.3 K/mm3 (0-0.3); Eosinophils Percent Auto 2.6 % (0-4.4); Hematocrit 37.9 % (37.0-47.0); Hemoglobin 12.1 g/dL (12.0-15.0); Immature Granulocyte Absolute 0.04 K/mm3 (0.00-0.031); Immature Granulocyte Percent A 0.4 % (0-0.5); Lymphocytes Absolute Auto 1.25 K/mm3 (0.9-3.2); Lymphocytes Percent Auto 12.7 % (18.3-44.2); Mean Corpuscular HGB Conc 31.9 g/dl (32-36); Mean Corpuscular Hemoglobin 28.3 pg (26-34); Mean Corpuscular Volume 88.8 fl (80-100); Mean Platelet Volume 9.7 fl (7.4-10.4); Monocytes Absolute Auto 0.9 K/mm3 (0.1-0.6); Monocytes Percent Auto 9.5 % (2.6-8.5); Neutrophils Absolute Auto 7.3 K/mm3 (1.3-6.7); Neutrophils Percent Auto 74.3 % (45.5-73.1); Platelet Count Result 263 k/mm3 (150-375); Red Blood Count 4.27 M/mm3 (4.2-5.4); Red Cell Distribution Width 14.6 % (11.5-14.5); White Blood Count 9.8 K/mm3 (4.5-10.0)
[2020-09-25] MEDS: ENOXAPARIN 40 MG/0.4 ML SYRINGE SUB-Q ×2 (09:47→20:54)
[2020-09-25] MEDS: amLODIPine BESYLATE 2.5 MG TABLET PO (09:56)
[2020-09-25] MEDS: MULTIVITAMINS THERAPEUTIC TAB (*BKC) 1 TABLET PO (09:56)
[2020-09-25 10:00] LABS: Alanine Aminotransferase 22 U/L (4-35); Alkaline Phosphatase 66 U/L (38-126); Anion Gap 4 mmol/L (8-16); Aspartate Amino Transferase 46 U/L (14-36); Bilirubin,Total 0.4 mg/dL (0.2-1.3); Blood Urea Nitrogen 12 mg/dL (7-17); Calcium 9.2 mg/dL (8.4-10.2); Carbon Dioxide 32 mmol/L (22-30); Chloride 99 mmol/L (98-107); Estimated CRCL calculation 134 ml/min; Estimated Glomerular Filt Rate > 60; Glucose 135 mg/dL (65-105); Potassium 4.1 mmol/L (3.4-5.0); Sodium 135 mmol/L (137-145)
[2020-09-25] MEDS: BUDESONIDE/FORMOTEROL 80/4.5 MCG 6.9 GM INHALER (*SP) 2 PUFF INHALATION ×2 (10:04→20:55)
[2020-09-25 10:10] LABS: Troponin I < 0.012 ng/mL (0.000-0.034)
[2020-09-25] MEDS: LACTATED RINGERS 1,000 ML 100 ML IV CONT ×2 (11:00→21:12)
[2020-09-25 11:19] VITALS: BP 141/85; PULSE 104; RESP 20; TEMP 36.8; O2SAT 100
--- NOTE | 2020-09-25 11:25 | PC.NURSE ---
radiology here to Xrat obstructive series at bedside
[2020-09-25] MEDS: ONDANSETRON INJ 4 MG/2 ML VIAL IV PUSH (14:37)
[2020-09-25] MEDS: fentaNYL CITRATE INJ (*CRX) 100 MCG/2 ML VIAL 50 MCG IV PUSH ×2 (14:41→20:59)
[2020-09-25 14:45] VITALS: PULSE 104; RESP 20; O2SAT 100
[2020-09-25] MEDS: KETOROLAC 30 MG/ML VIAL (*BKC) IV PUSH ×2 (14:45→20:55)
[2020-09-25 20:20] VITALS: BP 121/65; PULSE 98; RESP 18; TEMP 36.6; O2SAT 100
[2020-09-25] MEDS: PANTOPRAZOLE SODIUM IV 40 MG VIAL IV PUSH (21:02)
[2020-09-26] VITALS (7 sets, daily range): BP systolic 107–145; BP diastolic 55–86; PULSE 93–106; RESP 16–20; TEMP 35.9–36.9; O2SAT 95–100
--- NOTE | 2020-09-26 | ECHO_ITS ---
Patient Info Name: Aparna Sagastume Age: 40 years : 1980 Gender: Female Ht: 64 in Wt: 316 lbs BSA: 2.64 m2 HR: 90 bpm BP: 145 / 86 mmHg Technical Quality: Good Exam Date: 09/26/2020 3:12 PM Exam Location: [facility] Patient Status: Inpatient Admit Date: 09/23/2020 Staff Ordering Physician: Demarcus Nogueira MD Bellmaker: [place] Sprague, AMANDA, RT Attending Provider: Demarcus Nogueira MD Exam Type: CA echo doppler color flow Study Info Indications I27.2 - Other secondary pulmonary hypertension Complete two-dimensional, color flow and Doppler transthoracic echocardiogram is performed. Strain analysis performed. Summary 1. Complete two-dimensional, color flow and Doppler transthoracic echocardiogram is performed. 2. Left ventricular chamber dimension is normal. 3. Left ventricular systolic function is normal, estimated at 65-70%. 4. The left ventricular diastolic function is normal. 5. E/e' 8 is minimally elevated. 6. Global longitudinal strain is abnormal at -12.6%. Left Ventricle E/e' 8 is minimally elevated. Global longitudinal strain is abnormal at -12.6%. Left ventricular chamber dimension is normal. Left ventricular systolic function is normal, estimated at 65-70%. The left ventricular diastolic function is normal. Right Ventricle Right ventricular systolic function is normal and with normal TAPSE 2.0 cm.. Right ventricular chamber dimension is normal. Left Atria Left atrial chamber dimension is normal. Right Atria Right atrial chamber dimension is normal. Aortic Valve The aortic valve is trileaflet. There is no aortic valve stenosis. There is no aortic valve regurgitation. Pulmonic Valve There is no pulmonic regurgitation. Mitral Valve There is no mitral valve stenosis. There is no mitral valve regurgitation. Tricuspid Valve There is no tricuspid valve regurgitation. Pericardium/Pleural There is no pericardial effusion. Inferior Vena Cava Normal inferior vena cava with >50% collapse upon inspiration consistent with normal right atrial pressure, 5 mmHg. Aorta The aortic root size at the sinus of Valsalva is normal. Left Ventricular Outflow Tract Name Value Normal LVOT 2D LVOT Diameter 2.1 cm LVOT Doppler LVOT Peak Gradient 5 mmHg LVOT Mean Gradient 3 mmHg LVOT VTI 18 cm LVOT VTI/AV VTI Ratio 0.8 LVOT Stroke Volume 63 ml LVOT CO 6.1 l/min LVOT CI 2.3 l/min/m2 Mitral Valve Name Value Normal MV Doppler MV Decel [place] 460 cm/s2 MV PHT 58 ms MV Area (PHT) 3.8 cm2 4.0-5.0 MV Diast
[2020-09-26] MEDS: KETOROLAC 30 MG/ML VIAL (*BKC) IV PUSH ×4 (03:37→23:35)
[2020-09-26] MEDS: fentaNYL CITRATE INJ (*CRX) 100 MCG/2 ML VIAL 50 MCG IV PUSH ×4 (03:41→23:36)
--- NOTE | 2020-09-26 06:32 | PC.NURSE ---
Pt encouraged to ambulate in the hallways. Pt hesitant, but agreed to do so. Walked for approximately 3 minutes at 1930. Pt c/o heartburn throughout the evening. Protonix IVP was given at 2100. Remains NPO. Pt states she is still passing gas and belching. No nausea or vomiting throughout the evening.
--- NOTE | 2020-09-26 07:00 | PC.NURSE ---
PT introductions made and plan of care discussed per post op kiosk sales representative surgery, NPO, repeat obstructive series this morning, daily care activities and pain management. no barriers to learning noted. PT will receive education and instructions through out the day via one to one discussion. no other recipients in the room with the pt. PT verbalized understanding of such instructions.
[2020-09-26] MEDS: LACTATED RINGERS 1,000 ML 100 ML IV CONT ×2 (07:12→16:27)
--- NOTE | 2020-09-26 08:37 | PM.GYNPNOP ---
BATCH PLANT OPERATOR - A/P Assessment and plan (1) Ileus: Code(s): K56.7 - Ileus, unspecified Status: Acute Assessment and Plan: Improved nausea today, resolution of chest pain with Protonix, pain well controlled today, overall improved status. To have obstructive series per hospitalist. (2) Post-operative state: Code(s): Z98.890 - Other specified postprocedural states Status: Acute (3) Pelvic mass: Code(s): R19.00 - Intra-abdominal and pelvic swelling, mass and lump, unspecified site Status: Acute Postoperative Procedures: Procedures Operation Date: 09/23/20 13:00 Actual Procedures Side Surgeon p Exploratory Laparotomy with right ovarin cystectomy and left ovarian mass Not Applicable Paresh Ochoa MD Time Spent With Patient Time: Total time spent is greater than 50% in coordination of care (as documented) at patient's floor/unit and/or counseling patient: Time with patient: less than 15 minutes BATCH PLANT OPERATOR- PN:Subj Post-Op Subjective Date/time seen: 09/26/20 08:37 Improvement of nausea and vomiting, pain controlled today, rare flatus, and denies fevers chills, denies chest pain Exam Const: General: healthy appearing, comfortable and no acute distress Resp: Auscultation: clear to auscultation bilaterally, no rales, no rhonchi and no wheezes Cardio: Rate: regular rate Heart sounds: no click, no murmurs and no rubs GI: Inspection: non-distended Auscultation: normal bowel sounds Other: Incision-CDI Extrem: General: normal to inspection, no pedal edema and no calf tenderness BATCH PLANT OPERATOR - PN: Obj Data Vital Signs Vital Signs: Vital Signs - 24 hr 09/25/20 09:00 09/25/20 11:19 09/25/20 14:45 Temperature 97.1 F L 98.3 F Pulse Rate 98 104 H 104 H Respiratory Rate 20 20 20 Blood Pressure 141/85 H 141/85 H Pulse Oximetry 100 100 100 09/25/20 20:20 09/26/20 06:28 Temperature 97.9 F 98.0 F Pulse Rate 98 104 H Respiratory Rate 18 20 Blood Pressure 121/65 107/55 L Pulse Oximetry 100 95 Intake/Output Intake/Output: Intake & Output 09/23/20 09/24/20 09/25/20 04/15/21 23:59 23:59 23:59 23:59 Intake Total 600 4520 1000 1000 Output Total 200 3950 1750 300 Balance 400 570 -750 700 Meds/Results Medications: Active Medications Generic Name Dose Route Start Last Admin Trade Name Freq PRN Reason Stop Dose Admin Albuterol 1.25 mg 09/23/20 17:57 Albuterol Sulfate Neb 2.5 Mg/3 Ml Inh INHALATION Q4H PRN Bronchospasm Amlodipine Besylate 2.5 mg 09/24/20 09:00 09/25/20 09:56 Amlodipine Besylate 2.5 Mg Tablet PO 2.5 mg DAILY LEVAR Administration Budesonide/Formoterol Fumarate 2 puff 09/24/20 08:00 09/25/20 20:55 Budesonide/Formoterol 80/4.5 Mcg 6.9 Gm Inhaler (*Sp) INHALATION 2 puff Q12HRT LEVAR Administration Enoxaparin Sodium 40 mg 09/25/20 09:00 09/25/20 20:54 Enoxaparin 40 Mg/0.4 Ml Syringe SUB-Q 40 mg Q12HR LEVAR Administration Fentanyl Citrate 50 mcg 09/25/20 14:18 09/26/20 03:41 Fentanyl Citrate Inj (*Crx) 100 Mcg/2 Ml Vial IV PUSH 50 mcg Q4H PRN Administration severe pain Hydralazine HCl 10 mg 09/25/20 15:14 Hydralazine Hcl 20 Mg/Ml Vial IV PUSH Q8H PRN Blood Pressure - High Lactated Ringer's 1,000 mls @ 100 mls/hr 09/25/20 11:05 09/26/20 07:12 Lr - Lactated Ringers Iv IV CONT 100 mls/hr .Q10H LEVAR Administration Ketorolac Tromethamine 30 mg 09/23/20 16:45 09/26/20 03:37 Ketorolac 30 Mg/Ml Vial (*Bkc) IV PUSH 09/28/20 16:46 30 mg Q6H PRN Administration Pain Rated 4-6 Naloxone HCl 0.1 mg 09/23/20 16:45 Naloxone Hcl 0.4 Mg/Ml Vial IV PUSH Q2M PRN Respiratory rate less than 10 Ondansetron HCl 4 mg 09/25/20 14:20 09/25/20 14:37 Ondansetron Inj 4 Mg/2 Ml Vial IV PUSH 4 mg Q6H PRN Administration Nausea And Vomiting Pantoprazole Sodium 40 mg 09/25/20 21:00 09/25/20 21:02 Pantoprazole Sodium Iv 40 Mg Vial IV PUSH 40 mg Q12HR [facility] Administra
--- NOTE | 2020-09-26 09:15 | PM.IMCN ---
Assessment and Plan Assessment and plan (1) Chest pain: Code(s): R07.9 - Chest pain, unspecified Status: Acute Assessment and Plan: Patient developed burning in her chest after having episodes of nausea and vomiting. She has had this symptom before and describes it as acid reflux. EKG reviewed by myself. She does have evidence of right ventricular strain. This however is not new and was noted by the prior EKG 09/13/2020. PE less likely since asymptomatic. She may have underlying sleep apnea with right ventricular strain. Could also be normal variant. Troponin negative x1. Doubt ACS. Will repeat EKG. Check echocardiogram. Apnea link tonight. Repeat labs including lipase. (2) Ileus: Code(s): K56.7 - Ileus, unspecified Status: Acute Assessment and Plan: Patient developed nausea vomiting postop day 2. KUB showing small bowel dilation consistent with adynamic ileus. Likely related to the recent surgery. Patient is passing flatus. Encouraged her to be up walking in the halls as much as possible. Dulcolax suppository x1. Further management per primary team. (3) Pelvic mass: Code(s): R19.00 - Intra-abdominal and pelvic swelling, mass and lump, unspecified site Status: Acute Assessment and Plan: Patient noted to have a pelvic mass with evaluation showing this to be ovarian. 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 The left fallopian tube was normal. Patient tolerated the procedure well. Further management per primary team. (4) Morbid obesity: Code(s): E66.01 - Morbid (severe) obesity due to excess calories Status: Acute Assessment and Plan: BMI 54. Patient was educated about the benefits of leading a healthy lifestyle. (5) Asthma: Code(s): J45.909 - Unspecified asthma, uncomplicated Status: Acute Assessment and Plan: Distant breath sounds but no wheezing. Continue Symbicort. Albuterol available as needed. (6) Hypertension: Code(s): I10 - Essential (primary) hypertension Status: Inactive Assessment and Plan: Blood pressure well controlled. Continue amlodipine. Hydralazine available as needed. Adjust medications if required. (7) DVT prophylaxis: Code(s): Z29.9 - Encounter for prophylactic measures, unspecified Status: Acute Assessment and Plan: Lovenox HPI Data of Consult Consult date: 09/30/20 Requesting Physician: Geremias Nogueira MD Primary Care Provider: PHYSICIAN NOT ON STAFF Consult Narrative Reason for consult: chest pain Narrative: Aparna Sagastume is a 40 year old female with asthma and HTN here for elective Laparotomy for pelvic mass currently POD #3. Patient about a month ago noted a lower abdominal mass. Evaluation revealed a 20 cm mass. No imaging in the chart to review. Patient states her periods are regular. Denies dyspareunia. No nausea or vomiting. She was evaluated by mechanical assembly technician surgeon. Options were discussed and she was admitted 09/23/2020 and underwent exploratory laparotomy with resection of left pelvic mass and right ovarian cystectomy. Findings showing a 20 cm left ovarian mass, 3 cm right ovarian mass, normal appearing fallopian tube on the right and a stretched and scarred left fallopian tube stretched across the 20 cm mass. Normal-appearing uterus. Patient tolerated the procedure well. She was started on clear liquid diet that evening and advanced to regular diet the next day. Yesterday, patient awoke around 6:00 a.m. feeling hot and clammy. She was nauseous and had bouts of emesis. She describes it as reddish black. There was white mucus noted as well. She began to have ?acid reflux? in her chest. She describes it as ?burning all the way up to my throat?. She has had this before prior to her cholecyst
--- NOTE | 2020-09-26 09:30 | PC.NURSE ---
Radiology here for repeat obstructive series.
[2020-09-26] MEDS: PANTOPRAZOLE SODIUM IV 40 MG VIAL IV PUSH ×2 (09:56→21:03)
[2020-09-26] MEDS: ONDANSETRON INJ 4 MG/2 ML VIAL IV PUSH ×3 (09:57→23:35)
[2020-09-26] MEDS: ENOXAPARIN 40 MG/0.4 ML SYRINGE SUB-Q ×2 (09:58→21:03)
[2020-09-26] MEDS: BUDESONIDE/FORMOTEROL 80/4.5 MCG 6.9 GM INHALER (*SP) 2 PUFF INHALATION (09:58)
--- NOTE | 2020-09-26 10:06 | ECG_ITS ---
Measurements Intervals [place] Rate: 87 P: 52 NE: 165 QRS: 13 QRSD: 106 T: 18 QT: 368 QTc: 445 Interpretive Statements SINUS RHYTHM BORDERLINE T WAVE ABNORMALITY- INFERIOR LEADS BORDERLINE ECG Electronically Signed On 09-26-2020 17:06:55 CDT by Nahum Vera D.O.
[2020-09-26 13:03] LABS: Basophils Percent Auto 0.4 % (0.2-1.2); Eosinophils Absolute Auto 0.6 K/mm3 (0-0.3); Eosinophils Percent Auto 10.6 % (0-4.4); Hematocrit 35.1 % (37.0-47.0); Hemoglobin 11.3 g/dL (12.0-15.0); Lymphocytes Absolute Auto 1.66 K/mm3 (0.9-3.2); Mean Corpuscular HGB Conc 32.2 g/dl (32-36); Mean Corpuscular Hemoglobin 28.4 pg (26-34); Mean Corpuscular Volume 88.2 fl (80-100); Mean Platelet Volume 9.8 fl (7.4-10.4); Monocytes Absolute Auto 0.9 K/mm3 (0.1-0.6); Monocytes Percent Auto 16.6 % (2.6-8.5); Neutrophils Absolute Auto 2.2 K/mm3 (1.3-6.7); Neutrophils Percent Auto 41.4 % (45.5-73.1); Platelet Count Result 266 k/mm3 (150-375); Red Blood Count 3.98 M/mm3 (4.2-5.4); Red Cell Distribution Width 14.2 % (11.5-14.5); White Blood Count 5.4 K/mm3 (4.5-10.0)
[2020-09-26 13:13] LABS: Lipase 34 U/L (23-300)
[2020-09-26 13:15] LABS: Alanine Aminotransferase 32 U/L (4-35); Albumin Level 3.7 g/dL (3.5-5.1); Alkaline Phosphatase 70 U/L (38-126); Anion Gap 5 mmol/L (8-16); Aspartate Amino Transferase 54 U/L (14-36); Bilirubin,Total 0.6 mg/dL (0.2-1.3); Blood Urea Nitrogen 13 mg/dL (7-17); Calcium 8.6 mg/dL (8.4-10.2); Carbon Dioxide 31 mmol/L (22-30); Chloride 99 mmol/L (98-107); Estimated CRCL calculation 134 ml/min; Estimated Glomerular Filt Rate > 60; Glucose 105 mg/dL (65-105); Magnesium 1.8 mg/dL (1.6-2.3); Phosphorus 3.5 mg/dL (2.5-4.5); Potassium 3.9 mmol/L (3.4-5.0); Sodium 135 mmol/L (137-145)
[2020-09-26 13:16] LABS: CRP 7.9 mg/dL (<1.0)
--- NOTE | 2020-09-26 15:15 | PC.NURSE ---
Echo done in pt/s room per Dr Nogueira's orders
[2020-09-26] MEDS: BISACODYL 10 MG SUPPOSITORY RECTAL (16:31)
[2020-09-26] MEDS: SIMETHICONE 80 MG TAB.CHEW PO (21:14)
--- NOTE | 2020-09-26 22:55 | PCRCNOTE ---
patient refused apnea study; RT explained the purpose of the study to no avail; RN was notified
[2020-09-27] MEDS: LACTATED RINGERS 1,000 ML 100 ML IV CONT (02:30)
[2020-09-27] MEDS: fentaNYL CITRATE INJ (*CRX) 100 MCG/2 ML VIAL 50 MCG IV PUSH ×2 (04:50→08:13)
--- NOTE | 2020-09-27 06:38 | PC.NURSE ---
09/26/20202204 Respiratory therapy at bedside to administer sleep apnea study. Patient refuses.
--- NOTE | 2020-09-27 08:09 | PM.GYNPNOP ---
CARPET TILE LAYER - A/P Assessment and plan (1) Pelvic mass: Code(s): R19.00 - Intra-abdominal and pelvic swelling, mass and lump, unspecified site Status: Acute (2) Ileus: Code(s): K56.7 - Ileus, unspecified Status: Acute (3) Encounter for postoperative care: Code(s): Z48.89 - Encounter for other specified surgical aftercare Status: Acute Assessment and Plan: 40-year-old female on postoperative day 4 after laparotomy and left salpingo-oophorectomy and right cystectomy. Her ileus has resolved. She is tolerating p.o., passing flatus, having bowel movements, ambulating pain is well controlled. She is ready for discharge. Postoperative Procedures: Procedures Operation Date: 09/23/20 13:00 Actual Procedures Side Surgeon p Exploratory Laparotomy with right ovarin cystectomy and left ovarian mass Not Applicable Paresh Ochoa MD Time Spent With Patient Time: Total time spent is greater than 50% in coordination of care (as documented) at patient's floor/unit and/or counseling patient: Time with patient: 15 - 25 minutes CARPET TILE LAYER- PN:Subj Post-Op Subjective Date/time seen: 09/27/20 08:09 Tolerating p.o., passing flatus, had bowel movements, multiple, pain is well controlled, patient ambulating using the bathroom. Exam Const: General: healthy appearing, comfortable and no acute distress Resp: Auscultation: clear to auscultation bilaterally, no rales, no rhonchi and no wheezes Cardio: Rate: regular rate Heart sounds: no click, no murmurs and no rubs GI: Inspection: non-distended Auscultation: normal bowel sounds Other: Incision is clean dry and intact. Extrem: General: normal to inspection, no pedal edema and no calf tenderness CARPET TILE LAYER - PN: Obj Data Vital Signs Vital Signs: Vital Signs - 24 hr 09/26/20 08:30 09/26/20 09:10 09/26/20 13:15 Temperature 96.8 F L 96.7 F L Pulse Rate 106 H 106 H 93 Respiratory Rate 20 20 18 Blood Pressure 145/86 H 121/59 L Pulse Oximetry 97 97 97 09/26/20 16:00 09/26/20 16:15 09/26/20 21:00 Temperature 98 F 98.4 F 97.5 F L Pulse Rate 98 98 94 Respiratory Rate 16 16 18 Blood Pressure 142/85 H 142/85 H 126/83 Pulse Oximetry 97 97 100 Intake/Output Intake/Output: Intake & Output 09/24/20 09/25/20 09/26/20 09/27/20 23:59 23:59 23:59 23:59 Intake Total 4520 1000 2240 1000 Output Total 3950 1750 2000 250 Balance 570 -750 240 750 Meds/Results Medications: Active Medications Generic Name Dose Route Start Last Admin Trade Name Freq PRN Reason Stop Dose Admin Albuterol 1.25 mg 09/23/20 17:57 Albuterol Sulfate Neb 2.5 Mg/3 Ml Inh INHALATION Q4H PRN Bronchospasm Amlodipine Besylate 2.5 mg 09/24/20 09:00 09/26/20 14:00 Amlodipine Besylate 2.5 Mg Tablet PO Not Given DAILY LEVAR Budesonide/Formoterol Fumarate 2 puff 09/24/20 08:00 09/26/20 09:58 Budesonide/Formoterol 80/4.5 Mcg 6.9 Gm Inhaler (*Sp) INHALATION 2 puff Q12HRT LEVRA Administration Enoxaparin Sodium 40 mg 09/25/20 09:00 09/26/20 21:03 Enoxaparin 40 Mg/0.4 Ml Syringe SUB-Q 40 mg Q12HR LEVAR Administration Fentanyl Citrate 50 mcg 09/25/20 14:18 09/27/20 04:50 Fentanyl Citrate Inj (*Crx) 100 Mcg/2 Ml Vial IV PUSH 50 mcg Q4H PRN Administration severe pain Hydralazine HCl 10 mg 09/25/20 15:14 Hydralazine Hcl 20 Mg/Ml Vial IV PUSH Q8H PRN Blood Pressure - High Lactated Ringer's 1,000 mls @ 100 mls/hr 09/25/20 11:05 09/27/20 02:30 Lr - Lactated Ringers Iv IV CONT 100 mls/hr .Q10H LEVAR Administration Ketorolac Tromethamine 30 mg 09/23/20 16:45 09/26/20 23:35 Ketorolac 30 Mg/Ml Vial (*Bkc) IV PUSH 09/28/20 16:46 30 mg Q6H PRN Administration Pain Rated 4-6 Naloxone HCl 0.1 mg 09/23/20 16:45 Naloxone Hcl 0.4 Mg/Ml Vial IV PUSH Q2M PRN Respiratory rate less than 10 Ondansetron HCl 4 mg 09/25/20 14:20 09/26/20 23:35 Ondansetron Inj 4 Mg/2 Ml Vial IV PUSH 4 mg Q6H
--- NOTE | 2020-09-27 08:12 | PM.DS ---
DS: Admitting Diagnosis Admitting Diagnosis Admitting Diagnosis: Pelvic mass DS: Discharge Diagnosis Discharge Diagnosis (1) Ileus: Code(s): K56.7 - Ileus, unspecified Status: Acute (2) Pelvic mass: Code(s): R19.00 - Intra-abdominal and pelvic swelling, mass and lump, unspecified site Status: Acute (3) Encounter for postoperative care: Code(s): Z48.89 - Encounter for other specified surgical aftercare Status: Acute DS: Summary Hospital Course Hospital Course: This patient is a 40-year-old female was admitted for laparotomy and left salpingo-oophorectomy for a pelvic mass. The procedure was performed without complications. The postoperative course was complicated by ileus. This extended her postoperative care. She is afebrile throughout her stay. Her pain was well controlled throughout her stay. She was vomiting for a couple of days. She was recovering for 4 days and is ready for discharge on postoperative day 4. Her pain is well controlled. She is having bowel movements and passing flatus and tolerating p.o. at this time. Status at Discharge Functional status at discharge: independent ambulation Time Spent with Patient Time attestation: Total time spent providing and/or coordinating discharge services: DS: Data Data Completed and Pending Completed studies during hospitalization: Pending at discharge 09/23/20 13:49 Surgical [PTH] Routine Surgical [PTH] Routine Labs on day of discharge: Labs from last 24 hours 09/26/20 09/26/20 09/26/20 10:19 10:19 10:19 WBC RBC Hgb Hct MCV MCH MCHC RDW Plt Count MPV Immature Gran % (Auto) Neut % (Auto) Lymph % (Auto) [place] % (Auto) Eos % (Auto) Baso % (Auto) Lymph # (Auto) [place] # (Auto) Eos # (Auto) Baso # (Auto) Abs Immat Gran (auto) Absolute Neuts (auto) Absolute Nucleated RBC Nucleated RBC % Sodium 135 L Potassium 3.9 Chloride 99 Carbon Dioxide 31 H Anion Gap 5 L BUN 13 Creatinine 0.70 Estim Creat Clear Calc 134 Estimated GFR > 60 Glucose 105 Calcium 8.6 Phosphorus 3.5 Magnesium 1.8 Total Bilirubin 0.6 AST 54 H ALT 32 Alkaline Phosphatase 70 C-Reactive Protein 7.9 H Total Protein 7.0 Albumin 3.7 Lipase 34 09/26/20 10:19 WBC 5.4 RBC 3.98 L Hgb 11.3 L Hct 35.1 L MCV 88.2 MCH 28.4 MCHC 32.2 RDW 14.2 Plt Count 266 MPV 9.8 Immature Gran % (Auto) 0.0 Neut % (Auto) 41.4 L Lymph % (Auto) 31.0 [place] % (Auto) 16.6 H Eos % (Auto) 10.6 H Baso % (Auto) 0.4 Lymph # (Auto) 1.66 [place] # (Auto) 0.9 H Eos # (Auto) 0.6 H Baso # (Auto) 0.0 Abs Immat Gran (auto) 0.00 Absolute Neuts (auto) 2.2 Absolute Nucleated RBC 0.0 Nucleated RBC % 0.0 Sodium Potassium Chloride Carbon Dioxide Anion Gap BUN Creatinine Estim Creat Clear Calc Estimated GFR Glucose Calcium Phosphorus Magnesium Total Bilirubin AST ALT Alkaline Phosphatase C-Reactive Protein Total Protein Albumin Lipase Discharge Plan Discharge Consulting providers: ; Demarcus Nogueira Discharging Clinician: Paresh Ochoa Patient Disposition: Home, Self-Care Activity: pelvic rest Diet: regular Patient Instructions: Antibiotic Form, Pain Management (DC), Hysterectomy (DC) Stand Alone Forms: General Discharge Information Follow-up/Referrals: Paresh Ochoa MD [Physician] - Discharge Medications: New tramadol 50 mg tablet 50 mg PO Q6H PRN (Reason: pain) Qty: 25 RF: 0 ondansetron 8 mg film 8 mg PO Q8H Qty: 30 RF: 3 Continued amlodipine 2.5 mg tablet 2.5 mg PO DAILY RF: 0 budesonide-formoterol [Symbicort] 80-4.5 mcg/actuation Hfa Aerosol Inhaler 2 puff INHALATION Q12H RF: 0 albuterol sulfate 1.25 mg/3 mL solution for nebulization 1.25 mg INHALATION Q4H PRN (Reason: Bronchospasm) RF: 0 One-A-Day Wom
[2020-09-27] MEDS: PANTOPRAZOLE SODIUM IV 40 MG VIAL IV PUSH (08:18)
[2020-09-27] MEDS: BUDESONIDE/FORMOTEROL 80/4.5 MCG 6.9 GM INHALER (*SP) 2 PUFF INHALATION (08:23)
[2020-09-27 08:45] VITALS: BP 133/62; PULSE 88; RESP 14; TEMP 36.4; O2SAT 100
[2020-09-27] MEDS: ENOXAPARIN 40 MG/0.4 ML SYRINGE SUB-Q (08:53)
[2020-09-27] MEDS: amLODIPine BESYLATE 2.5 MG TABLET PO (08:54)
[2020-09-27] MEDS: ONDANSETRON HCL ODT 4 MG TABLET PO (08:54)
--- NOTE | 2020-09-27 10:00 | PC.NURSE ---
Dr. Ochoa wanted patient to eat some solid food prior to discharge. Patient refuses to eat breakfast but did drink some coffee. Offered patient some crackers but pt refuses. Dr. Ochoa aware that patient plans to drive herself home. Patient states that she has no friends or family locally that can give her a ride.
--- NOTE | 2020-09-27 11:00 | PC.NURSE ---
Patient taken to her car by wheelchair. Patient knows we recommend she have someone else drive her home. Pt states that she only lives 5 minutes away and has no one to pick her up. Dr. Don miner.
== END 2020-09-27 11:00 | disposition home or self-care (01) | DRG 513 ==
LOC: ANHOB2 17:17
PROVIDERS: Internal Medicine; Admitting Provider Obstetrics & Gynecology; Visit Provider Internal Medicine Cardiovascular Disease
PROC: 0UT94ZZ Resection of Uterus, Percutaneous Endoscopic Approach (ICD-10-PCS; principal; 2020-09-23 13:00)
DX: D27.0 Benign neoplasm of right ovary (principal); D27.1 Benign neoplasm of left ovary; R07.9 Chest pain, unspecified; K56.7 Ileus, unspecified; E66.01 Morbid (severe) obesity due to excess calories; J45.909 Unspecified asthma, uncomplicated; I10 Essential (primary) hypertension; Z68.43 Body mass index [BMI] 50.0-59.9, adult
CPT/HCPCS: 36415; 74019; 80053; 83690; 83735; 84100; 84484; 85025; 86140; 88304; 88305; 88307; 93005; 93306; A9270; C9113; J0690; J1100; J1170; J1200; J1650; J1885; J2250; J2270; J2405; J2704; J2710; J3010; J7120

== ENCOUNTER 2020-10-01 09:56 | Observation (INO) | payer OTHER, SELFPAY ==
[2020-10-01] VITALS (13 sets, daily range): BP systolic 132–151; BP diastolic 70–95; PULSE 76–117; RESP 15–20; TEMP 36.4–37.4; O2SAT 95–100; BMI 54.1
--- NOTE | 2020-10-01 10:30 | ED_ITS ---
HPI - Wound/Laceration General Chief Complaint: Wound/Laceration Stated Complaint: surgical wound complication Related Data Home Medications Medication Instructions Recorded Confirmed One-A-Day Women's Complete 1 tablet PO DAILY 09/10/20 09/23/20 albuterol sulfate 1.25 mg INHALATION Q4H PRN 09/10/20 09/23/20 amlodipine 2.5 mg PO DAILY 09/10/20 09/23/20 budesonide-formoterol [Symbicort] 2 puff INHALATION Q12H 09/10/20 09/23/20 Allergies Allergy/AdvReac Type Severity Reaction Status Date / Time hydrocodone [From Lortab] Allergy Intermediate Itching Verified 10/01/20 10:07 [facility] Past Medical History Medical History (Updated 09/27/20 @ 08:15 by Paresh Ochoa MD) Asthma Hypertension Surgical History Surgical History (Updated 09/24/20 @ 08:23 by Paresh Ochoa MD) History of cholecystectomy Family History Family History (Updated 09/26/20 @ 09:46 by Demarcus Nogueira MD) Sibling Ovarian cyst Grandparent Diabetes mellitus Social History Social History (Updated 09/26/20 @ 09:49 by Demarcus Nogueira MD) Social History: Patient states that her on July 27 from cancer. Patient currently living with her father and mother in law as well as her 's 15-year-old female cousin. She is a lifelong nonsmoker. She drinks 3-4 alcoholic drinks on the weekends. No drug use. She is a full code. She nominates her sister Magdalena Sagastume to be the individual who would make medical decisions for her if she is unable. Smoking status: Never smoker Alcohol intake: current Drinks per week: 3 Substance use: never Substance use type: does not use Gender identity (if verbalized by the patient): Female Spiritual care concerns: No Course Vital Signs Vital signs: Vital Signs Temperature 36.7 C 10/01/20 10:01 Pulse Rate 117 H 10/01/20 10:01 Respiratory Rate 19 10/01/20 10:01 Blood Pressure 144/94 H 10/01/20 10:01 Pulse Oximetry 100 10/01/20 10:01 Temperature 36.7 C 10/01/20 10:01 Pulse Rate 117 H 10/01/20 10:01 Respiratory Rate 19 10/01/20 10:01 Blood Pressure 144/94 H 10/01/20 10:01 Pulse Oximetry 100 10/01/20 10:01 Discharge Plan Discharge Prescriptions: No Action amlodipine 2.5 mg tablet 2.5 mg PO DAILY RF: 0 budesonide-formoterol [Symbicort] 80-4.5 mcg/actuation Hfa Aerosol Inhaler 2 puff INHALATION Q12H RF: 0 albuterol sulfate 1.25 mg/3 mL solution for nebulization 1.25 mg INHALATION Q4H PRN (Reason: Bronchospasm) RF: 0 One-A-Day Women's Complete 18 mg-400 mcg- 25 mcg Tablet 1 tablet PO DAILY RF: 0 ondansetron 8 mg film 8 mg PO Q8H Qty: 30 RF: 3 tramadol 50 mg tablet 50 mg PO Q6H PRN (Reason: pain) Qty: 25 RF: 0
--- NOTE | 2020-10-01 10:32 | PC.NURSE ---
Imelda jean at bedside for assessment.
--- NOTE | 2020-10-01 10:49 | PC.NURSE ---
message left with corn cooker for evaluation
[2020-10-01 11:11] LABS: Basophils Absolute Auto 0.1 K/mm3 (0.0-0.1); Basophils Percent Auto 0.5 % (0.2-1.2); Eosinophils Absolute Auto 0.8 K/mm3 (0-0.3); Eosinophils Percent Auto 7.8 % (0-4.4); Hematocrit 33.5 % (37.0-47.0); Hemoglobin 10.4 g/dL (12.0-15.0); Immature Granulocyte Absolute 0.32 K/mm3 (0.00-0.031); Immature Granulocyte Percent A 3.1 % (0-0.5); Lymphocytes Absolute Auto 2.52 K/mm3 (0.9-3.2); Lymphocytes Percent Auto 24.2 % (18.3-44.2); Mean Corpuscular Hemoglobin 27.7 pg (26-34); Mean Corpuscular Volume 89.1 fl (80-100); Mean Platelet Volume 9.3 fl (7.4-10.4); Monocytes Absolute Auto 1.1 K/mm3 (0.1-0.6); Monocytes Percent Auto 10.7 % (2.6-8.5); Neutrophils Absolute Auto 5.6 K/mm3 (1.3-6.7); Neutrophils Percent Auto 53.7 % (45.5-73.1); Platelet Count Result 360 k/mm3 (150-375); Red Blood Count 3.76 M/mm3 (4.2-5.4); Red Cell Distribution Width 14.2 % (11.5-14.5); White Blood Count 10.4 K/mm3 (4.5-10.0)
[2020-10-01 11:19] LABS: Lactic Acid Reflex 0.8 mmol/L (0.7-2.1)
[2020-10-01 11:21] LABS: Alanine Aminotransferase 36 U/L (4-35); Albumin Level 3.4 g/dL (3.5-5.1); Alkaline Phosphatase 93 U/L (38-126); Anion Gap 4 mmol/L (8-16); Aspartate Amino Transferase 41 U/L (14-36); Bilirubin,Total 0.2 mg/dL (0.2-1.3); Blood Urea Nitrogen 8 mg/dL (7-17); Calcium 8.2 mg/dL (8.4-10.2); Carbon Dioxide 31 mmol/L (22-30); Chloride 103 mmol/L (98-107); Estimated CRCL calculation 154 ml/min; Estimated Glomerular Filt Rate > 60; Glucose 99 mg/dL (65-105); Potassium 4.1 mmol/L (3.4-5.0); Sodium 138 mmol/L (137-145)
--- NOTE | 2020-10-01 11:30 | PC.NURSE ---
Wound care at bedside, dressing pt incision, states that pt will have wound vac placed on abd once she is admitted.
--- NOTE | 2020-10-01 11:56 | ED.WOUNDLAC ---
HPI - Wound/Laceration General Chief Complaint: Wound/Laceration <Imelda Adrian PA-C - Last Filed: 10/01/20 12:05> Stated Complaint: surgical wound complication <CHETAN Mariano Last Filed: 10/01/20 12:05> Time Seen by Provider: 10/01/20 10:30 <CHETAN Mariano Last Filed: 10/01/20 12:05> Source: patient <CHETAN Mariano Last Filed: 10/01/20 12:05> Mode of arrival: ambulatory <CHETAN Mariano Last Filed: 10/01/20 12:05> Limitations: no limitations <CHETAN Mariano Last Filed: 10/01/20 12:05> History of Present Illness HPI narrative: This is a 40-year-old female that presents to the emergency department for open abdominal wound since yesterday. Reports she had a transabdominal hysterectomy about a week ago with Dr. Ochoa. Yesterday she had her stitches out and the wound opened up. The wound was packed and she was going to get set up with wound care. She ended up being told to come here for further evaluation. Does endorse some abdominal pain that seems stable since her surgery. She is tolerating p.o. intake. Denies fevers or vomiting. <CHETAN Mariano Last Filed: 10/01/20 12:05> Related Data Home Medications: Home Medications Medication Instructions Recorded Confirmed One-A-Day Women's Complete 1 tablet PO DAILY 09/10/20 10/01/20 albuterol sulfate 1.25 mg INHALATION Q4H PRN 09/10/20 10/01/20 amlodipine 2.5 mg PO DAILY 09/10/20 10/01/20 budesonide-formoterol [Symbicort] 2 puff INHALATION Q12H 09/10/20 10/01/20 ondansetron 8 mg PO Q8H PRN 10/01/20 10/01/20 <CHETAN Mariano Last Filed: 10/01/20 12:05> Allergies/Adverse Reactions: Allergies Allergy/AdvReac Type Severity Reaction Status Date / Time hydrocodone [From Lortab] Allergy Intermediate Itching Verified 10/01/20 10:07 <Imelda Adrian PA-C - Last Filed: 10/01/20 12:05> Review of Systems Review of Systems: Narrative: CONSTITUTIONAL: Denies fever GASTROINTESTINAL: Reports abdominal pain. Denies nausea, vomiting GENITOURINARY: Denies dysuria <Imelda Adrian PA-C - Last Filed: 10/01/20 12:05> All systems reviewed & are unremarkable except as noted in HPI and below <Imelda Adrian PA-C - Last Filed: 10/01/20 12:05> [facility] Past Medical History Medical History: Medical History (Updated 10/01/20 @ 12:00 by Imelda Adrian PA-C) Asthma Hypertension <Imelda Adrian PA-C - Last Filed: 10/01/20 12:05> Surgical History Surgical History: Surgical History (Updated 09/24/20 @ 08:23 by Paresh Ochoa MD) History of cholecystectomy <Imelda Adrian PA-C - Last Filed: 10/01/20 12:05> Family History Family History: Family History Sibling Ovarian cyst Grandparent Diabetes mellitus <Imelda Adrian PA-C - Last Filed: 10/01/20 12:05> Social History Social History: Social History (Updated 09/26/20 @ 09:49 by Demarcus Nogueira MD) Social History: Patient states that her on July 27 from cancer. Patient currently living with her father and mother in law as well as her 's 15-year-old female cousin. She is a lifelong nonsmoker. She drinks 3-4 alcoholic drinks on the weekends. No drug use. She is a full code. She nominates her sister Magdalena Sagastume to be the individual who would make medical decisions for her if she is unable. Smoking status: Never smoker Alcohol intake: current Drinks per week: 8 Substance use: current Substance use type: prescription drug Gender identity (if verbalized by the patient): Female Spiritual care concerns: No <Imelda Adrian PA-C - Last Filed: 10/01/20 12:05> Exam Narrative: Exam Narrative: GENERAL: Well-appearing, well-nourished, and in no acute distress. HEAD: Normocephalic, atraumatic. EYES: EOMI. CHEST: Clear to auscultation. No respiratory distress. No wheezes rales or rhon
[2020-10-01 12:11] LABS: Erythrocyte Sedimentation Rate 82 mm/hr (0-20)
--- NOTE | 2020-10-01 13:15 | PC.NURSE ---
This patient, Aparna Sagastume, was admitted to [facility] Surg Room 320-01. Patient/family oriented to hospital policies and general routines including ID bracelet, bed and alarms, visiting hours, pain management, procedures, bathroom and other care routines, personal items, smoking policy, room service/diet, and visiting hours.Report received from Ana Lilia SCHMITT Information on how to activate the Rapid Response Team has been discussed. Patient/Family are encouraged to report perceived risks to care and to ask questions if they do not understand what they are told or what they should do.
--- NOTE | 2020-10-01 13:30 | PC.NURSE ---
Patient was on her cell phone the entire time I asked her question for her admission.
[2020-10-01] MEDS: traMADol HCL (*CRX) 50 MG TABLET PO ×2 (13:31→20:22)
--- NOTE | 2020-10-01 15:49 | PM.IMHP ---
H&P: HPI History of Present Illness Date/Time: 10/01/20 15:49 this patient is a 40-year-old female presents for subcutaneous wound abscess. She was seen in the office and diagnosed with subcutaneous wound abscess and a breakdown of her vertical laparotomy incision from the pubic symphysis to the umbilicus. Patient has a large pannus. She denies any nausea, vomiting, fever, chills. She denies any chest pain shortness of breath. She denies any unusual abdominal pain. Her wound was opened and packed with normal saline peroxide yesterday. It was wet-to-dry packings. We attempted to have her seen by wound care as an outpatient. This could not be completed so she was sent to the emergency department. She was seen by wound care in the emergency department. Chief Complaint: Open surgical wound Review of Systems Constitutional: Constitutional: Reports no additional constitutional complaints, Denies fatigue, Denies headache(s), Denies lethargy and Denies weakness Eyes: Eyes: Reports no additional eye complaints, Denies blurry vision and Denies photophobia ENT: Reports as per HPI, Denies headache(s) and Denies neck pain Cardiovascular: Cardiovascular: Denies chest pain, Denies diaphoresis, Denies leg edema, Denies palpitations and Denies dyspnea Respiratory: Respiratory: Denies hemoptysis, Denies dyspnea and Denies wheezing Gastrointestinal: Gastrointestinal: Denies abdominal pain, Denies melena, Denies bloating, Denies hematochezia, Denies nausea and Denies vomiting Genitourinary: Genitourinary: Reports no additional female genitourinary complaints Musculoskeletal: Musculoskeletal: Denies joint swelling, Denies neck pain, Denies numbness and Denies stiffness Neurologic: Denies Abnormal speech present, Denies confusion, Denies headache(s), Denies numbness and Denies weakness Psychiatric: Psychiatric: Denies anxiety, Denies confusion, Denies depression, Denies homicidal ideation and Denies suicidal ideation Endocrine: Endocrine: Denies fatigue and Denies palpitations Allergic/Immunologic: Allergic/Immunologic: Denies wheezing [facility] Past Medical History Medical History (Updated 10/01/20 @ 12:00 by Imelda Adrian PA-C) Asthma Hypertension Surgical History Surgical History (Updated 09/24/20 @ 08:23 by Paresh Ochoa MD) History of cholecystectomy Family History Family History Sibling Ovarian cyst Grandparent Diabetes mellitus Social History Social History (Updated 09/26/20 @ 09:49 by Demarcus Nogueira MD) Social History: Patient states that her on July 27 from cancer. Patient currently living with her father and mother in law as well as her 's 15-year-old female cousin. She is a lifelong nonsmoker. She drinks 3-4 alcoholic drinks on the weekends. No drug use. She is a full code. She nominates her sister Magdalena Sagastume to be the individual who would make medical decisions for her if she is unable. Smoking status: Never smoker Alcohol intake: current Drinks per week: 8 Substance use: current Substance use type: prescription drug Gender identity (if verbalized by the patient): Female Spiritual care concerns: No Meds Home Medications and Allergies Home Medications Medication Instructions Recorded Confirmed Type One-A-Day Women's Complete 1 tablet PO DAILY 09/10/20 10/01/20 History albuterol sulfate 1.25 mg INHALATION Q4H PRN 09/10/20 10/01/20 History amlodipine 2.5 mg PO DAILY 09/10/20 10/01/20 History budesonide-formoterol [Symbicort] 2 puff INHALATION Q12H 09/10/20 10/01/20 History tramadol 50 mg PO Q6H PRN #25 tablet 09/27/20 10/01/20 Rx ondansetron 8 mg PO Q8H PRN 10/01/20 10/01/20 History Allergies Allergy/AdvReac Type Severity Reaction Status Date / Time hydrocodone [From Lortab] Allergy Intermediate Itching Verified 10/01/20 10:07 Vital Signs Vital Signs - 24 hr 10/01/20 10:01 10/01/20
--- NOTE | 2020-10-01 17:34 | PCWOUND ---
WOCN NOTE Spoke with Dr Trinh will assess patient for wound vac with lay out and detail drafter in the AM. 10-02-20.
[2020-10-02] MEDS: traMADol HCL (*CRX) 50 MG TABLET PO ×2 (01:52→13:48)
[2020-10-02 05:39] VITALS: BP 129/75; PULSE 98; RESP 20; TEMP 37.6; O2SAT 99
--- NOTE | 2020-10-02 11:35 | PM.GYNPNOP ---
PUBLISHING AGENT - A/P Time Spent With Patient Time: Total time spent is greater than 50% in coordination of care (as documented) at patient's floor/unit and/or counseling patient: Time with patient: 15 - 25 minutes PUBLISHING AGENT- PN:Subj Post-Op Subjective Date/time seen: 10/02/20 11:35 Interval history: This patient is a 40-year-old female who is about 8 days postop from a laparotomy with resection of large ovarian mass. She is comfortable, wound care is attending to her. They are going to apply wound VAC today. She has a large open abdominal incision. There was an abscess in the subcutaneous fat. There is no evidence of any cellulitis. We will consider discharge after placement of wound VAC. Subjective: patient reports feeling better, patient has no complaints, pain is well controlled, patient is tolerating oral intake and patient reports nausea PUBLISHING AGENT - PN: Obj Data Vital Signs Vital Signs: Vital Signs - 24 hr 10/01/20 13:01 10/01/20 13:24 10/01/20 20:00 Temperature 97.5 F L Pulse Rate 76 100 97 Respiratory Rate 16 18 20 Blood Pressure 139/80 147/77 H Pulse Oximetry 100 98 100 10/01/20 21:49 10/02/20 05:39 Temperature 99.4 F 99.7 F H Pulse Rate 97 98 Respiratory Rate 20 20 Blood Pressure 132/70 129/75 Pulse Oximetry 100 99 Intake/Output Intake/Output: Intake & Output 09/29/20 09/30/20 10/01/20 10/02/20 23:59 23:59 23:59 23:59 Intake Total 340 1090 Output Total 300 300 Balance 40 790 Meds/Results Medications: Active Medications Generic Name Dose Route Start Last Admin Trade Name Freq PRN Reason Stop Dose Admin Aspirin 325 mg 10/02/20 11:35 Aspirin 325 Mg Tablet PO DAILY@0800 [facility] Acetaminophen 1,000 mg in 100 mls @ 400 mls/hr 10/01/20 11:49 10/02/20 05:37 Ofirmev 1,000 Mg Ivpb IVPB 10/02/20 11:50 Infused Q6H PRN Infusion Mild Pain (1-3) or Fever Ondansetron HCl 4 mg 10/01/20 11:49 Ondansetron Inj 4 Mg/2 Ml Vial IV PUSH Q4H PRN Nausea Tramadol HCl 50 mg 10/01/20 11:51 10/02/20 01:52 Tramadol Hcl (*Crx) 50 Mg Tablet PO 50 mg Q6H PRN Administration Pain Rated 4-6 Labs CBC & Chem 7: 10/01/20 10:59 10/01/20 10:59 Labs: Laboratory Results - last 24 hr 10/01/20 10:59 ESR 82 H
[2020-10-02] MEDS: ASPIRIN 325 MG TABLET PO (12:55)
[2020-10-02] MEDS: AMOXICILLIN/CLAVULANATE K 875-125 MG TAB 1 TABLET PO (13:50)
[2020-10-02 13:53] VITALS: BP 141/82; PULSE 89; RESP 18; TEMP 37.2; O2SAT 99
--- NOTE | 2020-10-02 14:58 | PC.NURSE ---
On 10/02/20, the student, [Tommy Baker ], provided care and completed [facility] documentation on this patient. I have reviewed the student's documentation and agree with the findings.
--- NOTE | 2020-10-02 15:12 | PM.CNGS ---
Assessment and Plan Assessment and plan (1) Abdominal wound dehiscence: Qualifiers: Encounter type: initial encounter Qualified Code(s): T81.30XA - Disruption of wound, unspecified, initial encounter Code(s): T81.30XA - Disruption of wound, unspecified, initial encounter Status: Acute Assessment and Plan: The patient was evaluated and appears to have abdominal wound dehiscence of the skin and subcutaneous tissue down to the level of the fascia, but fascia appears to be intact. There is some scant purulent drainage, but overall the majority of the wound appears to have healthy tissue. Wound culture sent and started her on oral Augmentin for the wound infection. This large open wound does look appropriate for wound VAC therapy, which was initiated today. Will ask care coordination to start the approval process for home wound VAC therapy to work towards discharge planning. Thank you for allowing us to see the patient in consultation. (2) Morbid obesity: Code(s): E66.01 - Morbid (severe) obesity due to excess calories Status: Acute (3) Asthma: Code(s): J45.909 - Unspecified asthma, uncomplicated Status: Acute Additional Plan I have discussed the patient's case and plan of care with Dr. Trinh. History of Present Illness Consult details Consult date: 10/02/20 Reason for consult: wound care (Evalution for possible wound VAC therapy on post-operative wound) Requesting physician: Paresh Ochoa MD Narrative: This is a 40-year-old morbidly obese female who underwent an exploratory laparotomy with resection of left pelvic mass and right ovarian cystectomy on 09/23/20. She was hospitalized through 09/27/20 and her hospitalization was complicated by a post-op ileus and chest pain felt to be related to reflux. After discharge, the patient followed up in the office with her OBGYN and reports that katty were removed in the office. She was found to have a subcutaneous wound abscess and breakdown of her vertical laparotomy incision. The wound was packed with normal saline peroxide and she was sent home with a referral to the wound clinic at [facility]. Due to this being a time sensitive issue and inability to be seen in the outpatient setting the following day, she presented to the ER. She was admitted and wound care nurses were consulted. It was felt that her abdominal incision may benefit from wound VAC therapy, therefore our service has been consulted for evaluation of the wound. She is seen on the medical floor today with Dr. Trinh and Vanessa, the air conditioning specialist. She denies having any antibiotics post-op and no wound cultures have been done. Patient reports that there is pain with dressing changes, but no other specific complaints. Review of Systems Review of Systems: All systems reviewed & are unremarkable except as noted in HPI and below Constitutional: Constitutional: Reports as per HPI, Denies chills, Denies fatigue and Denies fever(s) ENT: Reports system reviewed and no additional complaints, except as documented, Reports Normal hearing present and Denies dizziness Cardiovascular: Cardiovascular: Reports no additional cardiovascular complaints, Denies chest pain, Denies leg edema and Denies dyspnea Respiratory: Respiratory: Reports no additional respiratory complaints, Denies cough and Denies dyspnea Gastrointestinal: Gastrointestinal: Reports as per HPI, Reports no additional gastrointestinal complaints, Denies abdominal pain, Denies change in bowel habits, Denies change in stool character, Denies constipation, Denies diarrhea, Denies nausea and Denies vomiting Musculoskeletal: Musculoskeletal: Denies abnormal gait Integumentary/Breasts: Skin/Breast: Reports wounds and Denies jaundice Neurologic: Reports system reviewed and no additional complaints, except as documented, Reports Normal hearing present, Denies focal weakness, Denies numbness and Denies tingling PMFS
--- NOTE | 2020-10-02 16:34 | PCWOUND ---
WOCN NOTE Switched wound vac from ulta to activac. educated patient on wound care care and follow up as an outpatient.
== END 2020-10-02 18:00 | disposition home or self-care (01) ==
LOC: ANHED 12:00 → ANH3MEDSUR 12:51
PROVIDERS: Physician Assistant; Admitting Provider Obstetrics & Gynecology; Emergency Provider Emergency Medicine; Visit Provider Obstetrics & Gynecology
DX: T81.30XA Disruption of wound, unspecified, initial encounter (principal); I10 Essential (primary) hypertension; E66.01 Morbid (severe) obesity due to excess calories; Z68.43 Body mass index [BMI] 50.0-59.9, adult; J45.909 Unspecified asthma, uncomplicated
CPT/HCPCS: 36415; 80053; 83605; 85025; 85652; 86140; 87070; 87075; 87077; 87147; 87186; 87205; 96365; 96374; 96376; 99285; A9270; G0378; G0379; J0131

== ENCOUNTER 2020-10-14 01:49 | Emergency (ER) | payer OTHER, SELFPAY ==
[2020-10-14 01:56] VITALS: PULSE 92; RESP 20; TEMP 36.1; O2SAT 100
--- NOTE | 2020-10-14 02:35 | ED.GENADULT ---
HPI - General Adult General Chief complaint: Unspecified Stated complaint: Wound vac malfunctioning Time Seen by Provider: 10/14/20 01:57 Source: RN notes reviewed History of Present Illness HPI narrative: Patient presents emergency department from home for wound VAC malfunction. Patient states that she has a wound VAC for dehisced abdominal wound she is currently being followed by wound care on Wednesdays and Fridays states that approximately an hour ago she began to have bleeding from her wound VAC she called the wound VAC company and at that time was found that there is a malfunction with the canister there should be in her new wound VAC and she has an appointment tomorrow afternoon with wound care the company recommend the patient come to the emergency department for a wet-to-dry dressing as the wound VAC is not functioning patient denies any other complaints denies any other issues with the wound Related Data Home Medications Medication Instructions Recorded Confirmed One-A-Day Women's Complete 1 tablet PO DAILY 09/10/20 10/04/20 albuterol sulfate 1.25 mg INHALATION Q4H PRN 09/10/20 10/04/20 amlodipine 2.5 mg PO DAILY 09/10/20 10/04/20 budesonide-formoterol [Symbicort] 2 puff INHALATION Q12H 09/10/20 10/04/20 ondansetron 8 mg PO Q8H PRN 10/01/20 10/04/20 Allergies Allergy/AdvReac Type Severity Reaction Status Date / Time hydrocodone [From Lortab] Allergy Intermediate Itching Verified 10/01/20 10:07 Review of Systems Review of Systems: Narrative: Gen.: Denies fevers or chills Abdomen: Denies abdominal pain Neuro: Denies numbness, tingling, weakness Skin: See HPI Endo: Denies DM PMFSH Past Medical History Medical History Asthma Hypertension Morbid obesity Surgical History Surgical History History of cholecystectomy History of exploratory laparotomy 09/23/20 Exploratory laparotomy with resection of left pelvic mass and right ovarian cystectomy Family History Family History Sibling Ovarian cyst Grandparent Diabetes mellitus Social History Social History Social History: Patient states that her on July 27 from cancer. Patient currently living with her father and mother in law as well as her 's 15-year-old female cousin. She is a lifelong nonsmoker. She drinks 3-4 alcoholic drinks on the weekends. No drug use. She is a full code. She nominates her sister Magdalena Sagastume to be the individual who would make medical decisions for her if she is unable. Smoking status: Never smoker Alcohol intake: current Drinks per week: 8 Substance use: current Substance use type: prescription drug Gender identity (if verbalized by the patient): Female Spiritual care concerns: No Exam Narrative: Exam Narrative: APPEARANCE: No acute distress, nontoxic, resting in bed EYES: EOMI HEENT: Normocephalic, atraumatic, RESPIRATORY: No respiratory distress ABDOMINAL: Soft, nontender, nondistended, no rebound or guarding MUSCULOSKELETAl: Moves all extremities. NEURO: Awake and alert. Following commands, speech normal, no focal deficits SKIN:: Warm, dry. Midline abdominal wound with wound VAC present PSYCHIATRIC: Normal affect/mood, Course Course Emergency Course: Called and discussed with the wound VAC company at pharmacy services representative stated that she will have a new vacuum by noon tomorrow sent to her house and patient is to see wound care Discussed with transfer and pumphouse operator Keena who states when he is malfunctioning on the floor at night that they will do wet-to-dry dressing with wound care to follow-up Called discussed with Dr. Ochoa presentation work-up agrees with plan for wet-to-dry dressing Dry dressing placed in the emergency department by myself w
== END 2020-10-14 02:56 | disposition home or self-care (01) ==
PROVIDERS: Emergency Provider Emergency Medicine
DX: T85.698A Other mechanical complication of other specified internal prosthetic devices, implants and grafts, initial encounter (principal); T81.31XA Disruption of external operation (surgical) wound, not elsewhere classified, initial encounter; J45.909 Unspecified asthma, uncomplicated; I10 Essential (primary) hypertension; E66.01 Morbid (severe) obesity due to excess calories; Z68.38 Body mass index [BMI] 38.0-38.9, adult
CPT/HCPCS: 97606; 99281; A9270

== ENCOUNTER 2021-01-02 07:30 | Outpatient (RCR) | payer OTHER, SELFPAY ==
[2020-10-04 13:30] VITALS: BMI 53.6
== END 2021-01-02 23:59 | disposition home or self-care (01) ==
LOC: ANHWOC 07:30
PROVIDERS: Visit Provider Obstetrics & Gynecology
DX: Z48.01 Encounter for change or removal of surgical wound dressing (principal)
CPT/HCPCS: 97605; 97606; 99212; A9270; G0463

== ENCOUNTER 2021-02-18 07:22 | Outpatient (RCR) | payer OTHER, SELFPAY ==
[2021-01-03 00:03] VITALS: BMI 53.6
--- NOTE | 2021-02-27 11:51 | PCWOUND ---
WOCN NOTE patient had previously called on Wednesday02/24/21 to cancel scheduled appointment for 1000. Patient asked to be rescheduled for 02/27/21 at 1000. Patient did not show up for this appointment, nor did she call to cancel.
--- NOTE | 2021-03-20 10:47 | PCWOUND ---
WOCN NOTE Patient did not show up for her scheduled appointment at 10:00am today, no call or message was left by patient to cancel or reschedule.
== END 2021-04-06 23:59 | disposition home or self-care (01) ==
LOC: ANHWOC 07:22
PROVIDERS: Visit Provider Obstetrics & Gynecology
DX: Z48.01 Encounter for change or removal of surgical wound dressing (principal)
CPT/HCPCS: 99212; A9270; G0463

== ENCOUNTER 2021-05-02 22:47 | Emergency (ER) | payer OTHER, SELFPAY ==
[2021-05-02 22:52] VITALS: BP 144/81; PULSE 96; RESP 18; TEMP 36.2; O2SAT 100
--- NOTE | 2021-05-02 23:18 | ED.DENTAL ---
HPI - Dental/Oral General Chief complaint: Dental/Oral Stated complaint: nose pain/ tooth pain Time Seen by Provider: 05/02/21 23:17 Source: patient Mode of arrival: ambulatory Limitations: no limitations History of Present Illness HPI Narrative: Patient is a 40-year-old female complaining of I have an abscess in my tooth , states that she is been having dental pain in her upper incisors for the past few weeks but yesterday she thinks that is now turned into an abscess. Patient admits to having a cracked front tooth that she has had for a while. Patient states that she has had dental abscess in the past. Patient denies any dysphagia, neck pain or swelling, fever or chills. Related Data Home Medications Medication Instructions Recorded Confirmed One-A-Day Women's Complete 1 tablet PO DAILY 09/10/20 10/04/20 albuterol sulfate 1.25 mg INHALATION Q4H PRN 09/10/20 10/04/20 amlodipine 2.5 mg PO DAILY 09/10/20 10/04/20 budesonide-formoterol [Symbicort] 2 puff INHALATION Q12H 09/10/20 10/04/20 ondansetron 8 mg PO Q8H PRN 10/01/20 10/04/20 Allergies Allergy/AdvReac Type Severity Reaction Status Date / Time hydrocodone [From Lortab] Allergy Intermediate Itching Verified 05/02/21 23:21 naproxen AdvReac Gastrointestinal Verified 05/02/21 23:21 Upset tramadol AdvReac Headache Verified 05/02/21 23:22 Review of Systems Review of Systems: All systems reviewed & are unremarkable except as noted in HPI and below Constitutional: Constitutional: Reports as per HPI [facility] Past Medical History Medical History Asthma Hypertension Morbid obesity Surgical History Surgical History History of cholecystectomy History of exploratory laparotomy 09/23/20 Exploratory laparotomy with resection of left pelvic mass and right ovarian cystectomy Family History Family History Sibling Ovarian cyst Grandparent Diabetes mellitus Social History Social History Social History: Patient states that her on July 27 from cancer. Patient currently living with her father and mother in law as well as her 's 15-year-old female cousin. She is a lifelong nonsmoker. She drinks 3-4 alcoholic drinks on the weekends. No drug use. She is a full code. She nominates her sister Magdalena Sagastume to be the individual who would make medical decisions for her if she is unable. Smoking status: Never smoker Alcohol intake: current Drinks per week: 8 Substance use: current Substance use type: prescription drug Gender identity (if verbalized by the patient): Female Spiritual care concerns: No Exam Const: General: no acute distress and alert Orientation/consciousness: patient oriented x3 HENMT: Head: normal to inspection Ears: EAC's normal General nose exam: Normal external nose present Face and sinus: normal facial exam and no sinus tenderness Mouth: Yes lip normal and Yes moist mucous membranes Teeth and gingiva: abnormal tooth and associated gingiva (Front incisors) upper central incisor tender, with associated gingival edema, enamel fractured and dentin fractured, caries and poor dentition Throat: uvula midline Eyes: Conjunctivae: conjunctivae normal Neck: Neck: normal visual inspection, no lymphadenopathy and no meningeal signs Resp: Effort & Inspection: normal respiratory effort Skin: General skin exam: normal color Neuro: General: patient oriented x3 and moves all extremities Extrem: General: normal to inspection Course Vital Signs Vital signs: Vital Signs Temperature 36.2 C L 05/02/21 22:52 Pulse Rate 96 05/02/21 22:52 Respiratory Rate 18 05/02/21 22:52 Blood Pressure 144/81 H 05/02/21 22:52 Pulse Oximetry 100 05/02/21 22:52 Temperature 36.2 C L 04/14
--- NOTE | 2021-05-03 | PC.NURSE ---
ERP requests antibiotic be sent home with pt-- pt has not eaten anything tonight.
[2021-05-03] MEDS: KETOROLAC (*BKC) 60 MG/2 ML VIAL IM (00:01)
[2021-05-03 00:05] VITALS: BP 148/91; PULSE 92; RESP 18; O2SAT 100
== END 2021-05-03 00:05 | disposition home or self-care (01) ==
PROVIDERS: Emergency Provider Emergency Medicine
DX: K04.7 Periapical abscess without sinus (principal); K02.9 Dental caries, unspecified; J45.909 Unspecified asthma, uncomplicated; I10 Essential (primary) hypertension; E66.01 Morbid (severe) obesity due to excess calories; Z68.43 Body mass index [BMI] 50.0-59.9, adult
CPT/HCPCS: 96372; 99283; J1885